=== PATIENT | female | born 1980 | race Caucasian/White ===

== ENCOUNTER 2017-11-25 12:05 | Emergency (ER) | payer OTHER, MEDICAID, SELFPAY ==
[2017-11-25 12:30] VITALS: PULSE 105; RESP 24; TEMP 38.7; O2SAT 100
[2017-11-25] MEDS: EPINEPHrine 1 MG/ML AMPUL 0.3 MG IM (13:16)
[2017-11-25 13:17] VITALS: BP 98/69; PULSE 105; RESP 24; O2SAT 100
[2017-11-25] MEDS: DEXAMETHASONE 4 MG TABLET 12 MG PO (13:36)
[2017-11-25 15:23] VITALS: BP 110/75; PULSE 84; RESP 14; O2SAT 100
[2017-11-25 16:06] VITALS: BP 110/63; PULSE 70; RESP 13; TEMP 36.9; O2SAT 99
--- NOTE | 2017-11-25 18:51 | ED_ITS ---
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 No identifiable triggering event. No GI upset , no wheezing, no shortness of breath. No new medications, no KONG inhibitor's, no NSAIDs, no facial trauma. ROS with no recent constitutional symptoms. Exam Gen: Pleasant, non-toxic appearing, resting comfortably HEENT: NC, AT, PEERL, EOMI. Tongue with diffuse swelling, remainder of oropharynx visually normal Resp: Clear to auscultation bilaterally. Unlabored respirations with a normal work of breathing. Card: Regular rate and rhythm. Extremities warm and well perfused. GI: Non-distended. Nontender to palpation throughout. : Deferred MSK: No visible deformities, strength and tone without visually appreciable deficit. Neuro: AO x 3, no facial asymmetry, vision and hearing WNL. Heme/Lymph: Deferred Skin: diffuse hives. Psych: Mood and affect appropriate. MDM Previous chart, nursing note, and vitals reviewed. 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 DDx & Evaluation: exam history consistent with anaphylaxis, doubt angioedema given the cutaneous reactions, patient given epinephrine with resolution of tongue swelling and decreased and rash, steroids, ranitidine also given. Patient took diphenhydramine prior to arrival. Discharge with EpiPen prescription instructions to follow up with PCP. Impression: anaphylaxis (please reference below for remainder of encounter information) Related Data Home Medications Medication Instructions Recorded Confirmed acetaminophen [Tylenol Extra 1,000 mg PO Q6HP PRN #0 04/21/17 Strength] pramipexole [Mirapex] 0.25 mg PO HS #0 04/21/17 Previous Rx's Medication Instructions Recorded cyclobenzaprine 10 mg PO Q8HP PRN #20 tab 04/21/17 epinephrine [EpiPen 2-Pacheco] 0.3 mg IM Q10M PRN #2 each 11/25/17 Allergies Allergy/AdvReac Type Severity Reaction Status Date / Time shellfish derived Allergy Severe Anaphylaxis Verified 11/25/17 13:47 Sulfa (Sulfonamide Allergy Mild HIVES Verified 11/25/17 13:47 Antibiotics) latex [LATEX] Allergy Unknown Verified 11/25/17 13:47 Discharge Plan Departure Patient Disposition: Home, Self-Care Clinical Impression: Anaphylaxis Discharge Date/Time: 11/25/17 16:18 Interventions: ED Discharge Assessment Last Done: 11/25/17 16:06 Activity Restrictions/Additional Instructions: You were in seen in the [facility] Emergency Department for evaluation of an allergic reaction. Please read and follow all of the instructions below. Please follow up with your primary care physician within 1-2 days. If you have any new symptoms or if you are at all concerned about your health please return immediately to the emergency department. If you do not have a primary care physician, If your child does not have a primary care physician, please contact [facility], [place], [facility] at [phone], [facility] at [phone], or [facility] at [phone] to arrange follow up care. If you have health insurance, please also contact your insurer for a list of accepting providers under your policy, you may contact these providers for further health care. Your care today was limited to identifying and treating emergent medical problems only. Many people have subtle differences in their test results that require follow up with their outpatient physician(s) to correctly determine if this represents a normal variation or concerning abnormality with respect to your specific health. The care given to you today was limited to identifying and treating emergent medical problems - you need to request a copy of all of your medical records from today's visit and follow up with your outpatient physician(s) to review both today's visit and your overall health. Allergic Reaction Home Instructions: Anaphylaxis is a severe allergic reaction that can be life threatening. Anaphylaxis happens when one has a severe reaction to something that they are allergic to. You can also have anaphylaxis even if you do not know you have an allergy. You were treated for a reaction that was concerning for anaphylaxis. You were given medications to reverse the initial effects of the allergic reaction, however these effects may last for hours to possibly several days. Rarely people can have a recurrence of symptoms after discharge. If you begin to have a worsening of your symptoms (usually hives, itching, swelling, wheezing, nausea or abdominal pain) please return to the emergency department immediately. If you ever have the following symptoms, please self-administer your epinephrine auto injector (brand names: EpiPen or Adrenaclick): * Hives * Facial swelling (mouth, throat, eyes, or tongue) * Shortness of breath, wheezing, or difficulty breathing * Feeling light headed, dizzy, or passing out * Nausea, vomiting, or abdominal cramping * After discharge please do the following: * Carry your epinephrine autoinjector with you. * Take the prescribed prednisone daily for the next 2 days. * Take prescribed diphenhydramine (adults - 25 mg, children < 12 years old - 1 mg/kg up to 25 mg total) every 6 hours for the next two days. * We recommend following up with your primary care doctor. If the cause of your symptoms is not clear, you may need further allergy testing. * Please avoid any medications, insects, foods, detergents, soaps, lotions or other possible substances that you think may be causing symptoms. * Please read the medication instructions and warnings. Epinephrine Auto-Injector (Brand Name: EpiPen or Adrenaclick) This medication is used in emergencies to treat very serious allergic reactions to insect stings/bites, foods, drugs, or other substances. Epinephrine acts quickly to improve breathing, stimulate the heart, raise a dropping blood pressure, reverse hives, and reduce swelling of the face, lips, and throat. Please keep this medication near you all times. Different brands of this medication have different directions for preparing and using the injector. Learn how to properly inject this medication in advance so you will be prepared when you actually need to use it. Also teach a family member or caregiver what to do if you cannot inject the medication yourself. Read the Patient Information Leaflet provided by your pharmacist before you have to use epinephrine and each time you get a refill. If you have any questions, consult your doctor or pharmacist. The effects of this medication are rapid but not long-lasting. After injecting epinephrine, seek immediate medical attention. Tell the healthcare professional that you have given yourself an injection of epinephrine. Avoid accidentally injecting this medication into your hands or areas of your body other than the thigh. If this occurs, tell the healthcare professional right away. Discard the injector properly. The solution in this product should be clear. Check this product visually for particles or discoloration from time to time. If it has turned cloudy or pink/ brown in color, do not use the product. Obtain a new supply. Epinephrine Side Effects: * A fast/pounding heartbeat, nervousness, sweating, nausea, vomiting, trouble breathing, headache, dizziness, anxiety, shakiness, or pale skin may occur. If any of these effects persist or worsen, notify your doctor or pharmacist promptly. * Remember that your doctor has prescribed this medication because he or she has judged that the benefit to you is greater than the risk of side effects. Many people using this medication do not have serious side effects. * Tell your doctor right away if any of these unlikely but serious side effects occur: irregular heartbeat. * Seek immediate medical attention if any of these rare but very serious side effects occur: chest pain, fainting, vision changes, seizures, confusion. * This is not a complete list of possible side effects. If you notice other effects not listed above, contact your doctor or pharmacist. Epinephrine Precautions: * Before using this medication, tell your doctor or pharmacist if you are allergic to it; or if you have any other allergies. This product may contain inactive ingredients, which can cause allergic reactions or other problems. Talk to your pharmacist for more details. * This product may contain sulfites. However, if you have a sulfite allergy, this should not be a reason for avoiding use of this medication during an emergency. Since epinephrine can be life-saving, using it is more important than avoiding any sulfite-related problems you may experience. * Before using this medication, tell your doctor or pharmacist your medical history, especially of: heart conditions (e.g., coronary artery disease, arrhythmias), high blood pressure, thyroid disease, diabetes. * This drug may make you dizzy. Do not drive, use machinery, or do any activity that requires alertness until you are sure you can perform such activities safely. * The elderly may be more sensitive to the effects of this drug, especially a rapid rise in blood pressure, with increased risk if they also have heart disease. Diphenhydramine (Brand Name: Benadryl) * Please take this medication as prescribed. * Please take the medication for the full duration of the precription. * If you feel you are experiencing a side effect, please call your physician or the emergency department. * This medication is used to treat allergic reactions, itching, and sleep problems. Diphenhydramine Side Effects: * This medication most commonly causes fatigue. It may also cause dizziness, thickening of mucus in the nose or throat, nausea, vomiting, and rarely feeling nervous or exictable. * Do not take more than prescribed, overdoses of this medication can be very dangerous. Diphenhydramine Precautions: * Before taking this product, tell your doctor or pharmacist if you are allergic to diphenhydramine. This product may contain inactive ingredients, which can cause allergic reactions or other problems. Talk to your pharmacist for more details. * Tell all of your health care providers that you take this drug. This includes your doctors, nurses, pharmacists, and dentists. * Do not take more than what your doctor told you to take. Taking more than you are told may raise your chance of very bad side effects. * Do not take this drug for longer than you were told by your doctor. * Avoid driving and doing other tasks or actions that call for you to be alert until you see how this drug affects you. * Do not use with other products that have diphenhydramine. * Avoid drinking alcohol while taking this drug. * Talk with your doctor before you use other drugs and natural products that slow your actions. * Tell your doctor if you are or plan on getting . You will need to talk about the benefits and risks of using this drug while you are . * Tell your doctor if you are breast-feeding. You will need to talk about any risks to your baby. * If you are taking a liquid formulation, please be aware that some of these contain phenylalanine, please let both your doctor and pharmacist know if you have phenylketonuria (PKU). Prescriptions: New epinephrine [EpiPen 2-Pacheco] 0.3 mg/0.3 mL auto-injector 0.3 mg IM Q10M PRN (Reason: anaphylaxis) Qty: 2 RF: 0 No Action acetaminophen [Tylenol Extra Strength] 500 MG tablet 1,000 mg PO Q6HP PRNQty: 0 RF: 0 pramipexole [Mirapex] 0.25 MG tablet 0.25 mg PO HS Qty: 0 RF: 0 cyclobenzaprine 10 MG tablet 10 mg PO Q8HP PRNQty: 20 RF: 0
== END 2017-11-25 16:18 | disposition home or self-care (01) ==
PROVIDERS: Emergency Provider Emergency Medicine
DX: T78.2XXA Anaphylactic shock, unspecified, initial encounter (principal)
CPT/HCPCS: 96372; 99282; 99283; 99291; 99292; J0171

== ENCOUNTER 2018-01-28 16:39 | Emergency (ER) | payer OTHER, MEDICAID, SELFPAY ==
[2018-01-28 16:58] VITALS: BP 119/83; PULSE 125; RESP 20; TEMP 36.9; O2SAT 97; BMI 28.5
--- NOTE | 2018-01-28 17:49 | PC.NURSE ---
[facility] contacted for IV placement. provider aware and no new orders at this time.
--- NOTE | 2018-01-28 17:50 | ED_ITS ---
HPI - Abdominal Pain <JENNIE Jamison - Last Filed: 01/28/18 22:38> General Chief Complaint: Abdominal Pain Stated Complaint: RT SIDE ABD PAIN,THROWING UP Time Seen by Provider: 01/28/18 17:39 History of Present Illness HPI narrative: 29-year-old female with history of having a endometriosis mass to her right ovary over the last couple of years here for complaint of right lower quadrant pain over the past few days. She states that pain is worse than normal for her. She currently has surgery scheduled in the next 2 weeks to remove the mass from her right ovary by OBGYN at [facility]. She has a history of hysterectomy. She denies any urinary symptoms. Positive nausea no fevers or chills. No flank pain. MD complaint: abdominal pain Related Data Home Medications Medication Instructions Recorded Confirmed acetaminophen [Tylenol Extra 1,000 mg PO Q6HP PRN #0 04/21/17 Strength] pramipexole [Mirapex] 0.25 mg PO HS #0 04/21/17 Previous Rx's Medication Instructions Recorded cyclobenzaprine 10 mg PO Q8HP PRN #20 tab 04/21/17 epinephrine [EpiPen 2-Pacheco] 0.3 mg IM Q10M PRN #2 each 11/25/17 hydrocodone-acetaminophen 1 tab PO Q4-6H PRN #10 tab 01/28/18 Allergies Allergy/AdvReac Type Severity Reaction Status Date / Time Sulfa (Sulfonamide Allergy Mild HIVES Verified 11/25/17 13:47 Antibiotics) latex [LATEX] Allergy Unknown Verified 11/25/17 13:47 Review of Systems <JENNIE Jamison - Last Filed: 01/28/18 22:38> Constitutional Denies chills, Denies fever(s), Denies lethargy and Denies weakness Eyes Denies change in vision, Denies eye discharge, Denies irritation and Denies loss of vision Cardiovascular Denies chest pain, Denies irregular heart rhythm, Denies lightheadedness, Denies palpitations, Denies dyspnea, Denies dyspnea on exertion and Denies orthopnea Respiratory Denies cough, Denies dyspnea, Denies dyspnea on exertion and Denies wheezing Gastrointestinal Comments: Right lower quadrant/pelvic pain Musculoskeletal Denies back pain, Denies muscle weakness, Denies numbness and Denies tingling Integumentary/Breasts Denies pruritus, Denies erythema, Denies rash and Denies wounds Neurologic Denies confusion, Denies loss of vision, Denies numbness, Denies tingling and Denies weakness Psychiatric Denies anxiety, Denies confusion, Denies depression, Denies homicidal ideation and Denies suicidal ideation Endocrine Denies palpitations Hematologic/Lymphatic Denies easy bruising Allergic/Immunologic Denies wheezing Exam <JENNIE Jamison - Last Filed: 01/28/18 22:38> Initial Vital Signs Initial Vital Signs: Vital Signs Temperature 98.4 F 01/28/18 16:58 Pulse Rate 125 H 01/28/18 16:58 Respiratory Rate 20 01/28/18 16:58 Blood Pressure 119/83 H 01/28/18 16:58 Pulse Oximetry 97 01/28/18 16:58 Const General: cooperative and well developed Nutritional Appearance: well nourished Orientation: alert, awake, oriented x3 and not confused HENMT Mouth: oral mucosae normal and moist mucous membranes Resp Effort & Inspection: normal respiratory effort, able to speak in complete sentences, no respiratory distress and no use of accessory muscles Auscultation: clear to auscultation bilaterally, no rales, no rhonchi and no wheezes Cardio Rate: regular rate Rhythm: regular rhythm Heart Sounds: no click, no gallops, no murmurs and no rubs GI Inspection: non-distended Palpation: soft, no hepatosplenomegaly, No guarding, No pulsatile mass and tender (Tenderness to right lower quadrant/pelvic area on palpation) Auscultation: normal bowel sounds Skin General: no rashes or lesions noted, No jaundice and No petechiae Neuro General: alert, oriented x3, gait normal and no focal motor deficits Speech: speech normal <Alfredo Menjivar DO - Last Filed: 01/29/18 01:51> Initial Vital Signs Initial Vital Signs: Vital Signs Temperature 98.4 F 01/28/18 16:58 Pulse Rate 125 H 01/28/18 16:58 Respiratory Rate 20 01/28/18 16:58 Blood Pressure 119/83 H 01/28/18 16:58 Pulse Oximetry 97 01/28/18 16:58 Course <JENNIE Jamison - Last Filed: 01/28/18 22:38> Orders Ordered: ED Orders 07/11/18 18:05 Complete Blood Count AUTO DIFF Stat Comprehensive Metabolic Panel Stat Lipase Stat 01/28/18 18:12 CT abdomen pelvis w con Stat Discontinued Medications Hydromorphone HCl (Dilaudid) 1 mg IV NOW ONE Stop: 01/28/18 18:13 Last Admin: 01/28/18 18:38 Dose: 1 mg Hydromorphone HCl (Dilaudid) 1 mg IV NOW ONE Stop: 01/28/18 20:03 Last Admin: 01/28/18 20:10 Dose: 1 mg Sodium Chloride (Normal Saline 0.9%) 1,000 mls @ 150 mls/hr IV CONT CRISTINA Last Infusion: 01/28/18 20:10 Dose: 150 mls/hr Admin: 01/28/18 18:06 Dose: 150 mls/hr Ondansetron HCl (Zofran) 4 mg IV NOW ONE Stop: 01/28/18 18:13 Last Admin: 01/28/18 18:38 Dose: 4 mg Vital Signs - 8 hr 01/28/18 20:10 Pulse Rate 82 Respiratory Rate 14 Blood Pressure [Left Arm] 150/83 H Pulse Oximetry 100 <Alfredo Menjivar, - Last Filed: 01/29/18 01:51> Orders Ordered: ED Orders 01/28/18 18:05 Complete Blood Count AUTO DIFF Stat Comprehensive Metabolic Panel Stat Lipase Stat 01/28/18 18:12 CT abdomen pelvis w con Stat Discontinued Medications Hydromorphone HCl (Dilaudid) 1 mg IV NOW ONE Stop: 01/28/18 18:13 Last Admin: 01/28/18 18:38 Dose: 1 mg Hydromorphone HCl (Dilaudid) 1 mg IV NOW ONE Stop: 01/28/18 20:03 Last Admin: 01/28/18 20:10 Dose: 1 mg Sodium Chloride (Normal Saline 0.9%) 1,000 mls @ 150 mls/hr IV CONT CRISTINA Last Infusion: 01/28/18 20:10 Dose: 150 mls/hr Admin: 01/28/18 18:06 Dose: 150 mls/hr Ondansetron HCl (Zofran) 4 mg IV NOW ONE Stop: 01/28/18 18:13 Last Admin: 01/28/18 18:38 Dose: 4 mg Vital Signs - 8 hr 01/28/18 20:10 Pulse Rate 82 Respiratory Rate 14 Blood Pressure [Left Arm] 150/83 H Pulse Oximetry 100 MDM - Abdominal Pain <JENNIE Jamison - Last Filed: 01/28/18 22:38> Lab Data Result diagrams: 01/28/18 18:05 01/28/18 18:05 Lab Results 01/28/18 01/28/18 Range/Units 18:05 18:05 WBC 9.1 (4.5-11.0) X10^3/uL RBC 3.93 L (4.0-5.2) X10^6/uL Hgb 13.1 (12.0-16.0) g/dL Hct 38.9 (36-46) % MCV 98.9 (80-100) fL MCH 33.3 (26-34) PG MCHC 33.7 (30-36) % RDW 11.9 (11.6-14.8) % Plt Count 260 (150-400) X10^3/uL Neut % (Auto) 64.2 (50-75) % Lymph % (Auto) 26.7 (25-40) % Swift % (Auto) 6.8 (3-14) % Eos % (Auto) 1.3 L (2-4) % Baso % (Auto) 1.0 (0-2) % Neut # (Auto) 5800 (1466-0058) /uL Sodium 141 (137-145) mmol/L Potassium 4.7 (3.4-5.1) mmol/L Chloride 110 H (98-107) mmol/L Carbon Dioxide 22 (22-32) mmol/L BUN 10 (7-17) mg/dL Creatinine 0.80 (0.52-1.04) mg/dL Estimated GFR > 60.0 (>60) mL/min BUN/Creatinine Ratio 12.5 (6-22) Glucose 85 (70-100) mg/dL Calcium 9.5 (8.4-10.2) mg/dL Total Bilirubin 0.5 (0.2-1.3) mg/dL AST 16 (14-36) IU/L ALT 21 (9-52) IU/L Alkaline Phosphatase 46 (38-126) U/L Total Protein 7.2 (6.3-8.2) g/dL Albumin 4.2 (3.5-5.0) g/dL Globulin 3.0 (1.7-4.1) g/dL Albumin/Globulin Ratio 1.4 (1.0-2.8) Lipase 54 (23-300) U/L Point of care testing: Urine Dip Bedside Urine Glucose Negative Bedside Urine Bilirubin - Negative Bedside Urine Ketone - Negative Urine Specific [place] 1.015 Bedside Urine Occult Blood - Negative Bedside Urine pH 6.0 Bedside Urine Protein - Negative Bedside Urine Urobilinogen +/- 1mg Bedside Urine Nitrite - Negative Bedside Urine Leukocytes - Negative Esterase MDM Narrative Medical decision making narrative: CBC and Chem panel lipase were obtained were unremarkable. CT of the abdomen was also obtained and was negative for any acute findings. Urinalysis was negative for urinary tract infection. No mass was seen into the pelvic region on CT. She is referred to OBGYN in which she is scheduled to see them for pre-surgery 2 days from now. Small amount of [place] is prescribed for breakthrough pain not covered by ibuprofen. Follow up with primary care provider. Return emergency room for any worsening symptoms. <Alfredo Menjivar, DO - Last Filed: 01/29/18 01:51> Lab Data Lab Results 01/28/18 01/28/18 Range/Units 18:05 18:05 WBC 9.1 (4.5-11.0) X10^3/uL RBC 3.93 L (4.0-5.2) X10^6/uL Hgb 13.1 (12.0-16.0) g/dL Hct 38.9 (36-46) % MCV 98.9 (80-100) fL MCH 33.3 (26-34) PG MCHC 33.7 (30-36) % RDW 11.9 (11.6-14.8) % Plt Count 260 (150-400) X10^3/uL Neut % (Auto) 64.2 (50-75) % Lymph % (Auto) 26.7 (25-40) % Swift % (Auto) 6.8 (3-14) % Eos % (Auto) 1.3 L (2-4) % Baso % (Auto) 1.0 (0-2) % Neut # (Auto) 5800 (2233-4044) /uL Sodium 141 (137-145) mmol/L Potassium 4.7 (3.4-5.1) mmol/L Chloride 110 H (98-107) mmol/L Carbon Dioxide 22 (22-32) mmol/L BUN 10 (7-17) mg/dL Creatinine 0.80 (0.52-1.04) mg/dL Estimated GFR > 60.0 (>60) mL/min BUN/Creatinine Ratio 12.5 (6-22) Glucose 85 (70-100) mg/dL Calcium 9.5 (8.4-10.2) mg/dL Total Bilirubin 0.5 (0.2-1.3) mg/dL AST 16 (14-36) IU/L ALT 21 (9-52) IU/L Alkaline Phosphatase 46 (38-126) U/L Total Protein 7.2 (6.3-8.2) g/dL Albumin 4.2 (3.5-5.0) g/dL Globulin 3.0 (1.7-4.1) g/dL Albumin/Globulin Ratio 1.4 (1.0-2.8) Lipase 54 (23-300) U/L Point of care testing: Urine Dip Bedside Urine Glucose Negative Bedside Urine Bilirubin - Negative Bedside Urine Ketone - Negative Urine Specific [place] 1.015 Bedside Urine Occult Blood - Negative Bedside Urine pH 6.0 Bedside Urine Protein - Negative Bedside Urine Urobilinogen +/- 1mg Bedside Urine Nitrite - Negative Bedside Urine Leukocytes - Negative Esterase Discharge Plan Departure Patient Disposition: Home, Self-Care Clinical Impression: Abdominal pain Discharge Date/Time: 01/28/18 20:25 Interventions: ED Discharge Assessment Last Done: 01/28/18 20:18 Instructions: DI for Abdominal Pain-Adult Activity Restrictions/Additional Instructions: Laboratory results today were unremarkable. CT of the abdomen was obtained was negative for any acute findings. Recommend following up with tin stacker as scheduled in the next couple days for re-evaluation and discussion of pain control until surgery can be completed. Small amount of [place] is prescribed for breakthrough pain and that covered by ibuprofen use as directed. For any worsening symptoms return to the emergency room. Follow up with primary care provider. Prescriptions: New hydrocodone-acetaminophen 5-325 mg tablet 1 tab PO Q4-6H PRN (Reason: pain) Qty: 10 RF: 0 No Action acetaminophen [Tylenol Extra Strength] 500 MG tablet 1,000 mg PO Q6HP PRNQty: 0 RF: 0 pramipexole [Mirapex] 0.25 MG tablet 0.25 mg PO HS Qty: 0 RF: 0 cyclobenzaprine 10 MG tablet 10 mg PO Q8HP PRNQty: 20 RF: 0 epinephrine [EpiPen 2-Pacheco] 0.3 mg/0.3 mL auto-injector 0.3 mg IM Q10M PRN (Reason: anaphylaxis) Qty: 2 RF: 0 Referrals: Cate Hensley [Primary Care Provider] - <Alfredo Menjivar DO - Last Filed: 01/29/18 01:51> [facility] Attending [place] Attestation: I was immediately available in the department for consultation. Documentation has been reviewed. I agree with assessment and plan.
[2018-01-28] MEDS: SODIUM CHLORIDE 0.9% 1,000 ML 150 ML IV (18:06)
--- NOTE | 2018-01-28 18:12 | DI.CT.S_ITS ---
PROCEDURE: CT ABDOMEN PELVIS W CON INDICATIONS: Right lower quadrant pain TECHNIQUE: After the administration of intravenous contrast, 5 mm thick sections acquired from the diaphragm to the symphysis. 5 mm coronal and sagittal reformats were acquired. For radiation dose reduction, the following was used: automated exposure control, adjustment of mA and/or kV according to patient size. COMPARISON: [facility], CT, CT KUB, 11/10/2016, 21:24. FINDINGS: Image quality: Excellent. ABDOMEN: Lung bases: Lung bases are clear. Heart size is normal. Solid organs: Liver is normal in size and enhancement. Gallbladder appears normal. Biliary system is non dilated. Pancreas enhances normally. Spleen is normal in size and enhancement. No adrenal nodules. Kidneys demonstrate normal size and enhancement, without hydronephrosis. Peritoneum and bowel: Bowel loops demonstrate normal wall thickness and caliber. No free fluid or air. Nodes and vessels: No retroperitoneal or mesenteric adenopathy by size criteria. Aorta and inferior vena cava are normal in size. Miscellaneous: No ventral hernias. PELVIS: Genitourinary: Bladder wall thickness is normal. Miscellaneous: No inguinal hernias or adenopathy. A normal or abnormal appendix is not seen at the right lower quadrant. Bones: No suspicious bony lesions. No vertebral body compression fractures. IMPRESSION: A normal or abnormal appendix is not seen at the right lower quadrant. Source of current right lower quadrant pain is not seen. No secondary CT evidence of acute cholecystitis is found. At the adnexal regions of each hemipelvis a discrete cystic or solid mass is not identified. Dictated by: Randell Sosa M.D. on 01/28/2018 at 19:42 Approved by: Randell Sosa M.D. on 01/28/2018 at 19:44
[2018-01-28 18:19] LABS: Add Manual Diff / Slide Review NO; Eosinophils Percent Auto 1.3 % (2-4); Hematocrit 38.9 % (36-46); Hemoglobin 13.1 g/dL (12.0-16.0); Lymphocytes Percent Auto 26.7 % (25-40); Mean Corpuscular HGB Conc 33.7 % (30-36); Mean Corpuscular Hemoglobin 33.3 PG (26-34); Mean Corpuscular Volume 98.9 fL (80-100); Monocytes Percent Auto 6.8 % (3-14); Neutrophils Absolute Auto 5800 /uL (3000-5900); Neutrophils Percent Auto 64.2 % (50-75); Platelet Count 260 X10^3/uL (150-400); Red Blood Cell Count 3.93 X10^6/uL (4.0-5.2); Red Cell Distribution Width 11.9 % (11.6-14.8); White Blood Cell Count 9.1 X10^3/uL (4.5-11.0)
--- NOTE | 2018-01-28 18:26 | PC.NURSE ---
Patient refused refused POC states she does not have a uterus. provider aware. no new orders at this time.
[2018-01-28] MEDS: HYDROMORPHONE 1 MG INJ IV ×2 (18:38→20:10)
[2018-01-28] MEDS: ONDANSETRON 4 MG/2 ML INJ IV (18:38)
[2018-01-28 18:40] LABS: Alanine Aminotransferase 21 IU/L (9-52); Albumin 4.2 g/dL (3.5-5.0); Albumin Globulin Ratio 1.4 (1.0-2.8); Alkaline Phosphatase 46 U/L (38-126); Aspartate Aminotransferase 16 IU/L (14-36); BUN Creatinine Ratio 12.5 (6-22); Bilirubin Total 0.5 mg/dL (0.2-1.3); Blood Urea Nitrogen 10 mg/dL (7-17); Calcium 9.5 mg/dL (8.4-10.2); Carbon Dioxide 22 mmol/L (22-32); Chloride 110 mmol/L (98-107); Estimated Glomerular Filt Rate > 60.0 mL/min (>60); Glucose 85 mg/dL (70-100); HEMOLYSIS < 15 (0-50); Lipase 54 U/L (23-300); Potassium 4.7 mmol/L (3.4-5.1); Sodium 141 mmol/L (137-145); Total Protein 7.2 g/dL (6.3-8.2)
[2018-01-28 20:10] VITALS: BP 150/83; PULSE 82; RESP 14; O2SAT 100
== END 2018-01-28 20:25 | disposition home or self-care (01) ==
PROVIDERS: Emergency Medicine; Emergency Provider Nurse Practitioner Family; PCP Physician Assistant
DX: R10.9 Unspecified abdominal pain (principal)
CPT/HCPCS: 36591; 74177; 80053; 81003; 83690; 85025; 96361; 96374; 96375; 96376; 99283; 99284; J1170; J2405; Q9967

== ENCOUNTER 2019-03-08 21:27 | Emergency (ER) | payer SELFPAY ==
[2019-03-08 21:36] VITALS: BP 141/81; PULSE 94; RESP 18; TEMP 36.7; O2SAT 98; BMI 25.3
--- NOTE | 2019-03-08 21:40 | ED.HEATRA ---
HPI - Head Injury General Chief complaint: Headache Stated complaint: Headache Time Seen by Provider: 03/08/19 21:29 Source: patient and family Mode of arrival: ambulatory Limitations: no limitations History of Present Illness HPI Narrative: 38-year-old female former smoker with history of migraines presents with severe frontal headache which is similar in location to prior headaches, but quicker in onset and more severe. She denies any injury nor neck pain or fever. She states bright lights, loud noise and exertion makes her pain worse. She denies any neurologic symptoms such as numbness, weakness or tingling. She does state that her vision is a bit blurred when her pain is at its most intense. Complaint: head pain Onset (ago): hour(s) Severity: severe Quality: crushing and aching Radiation: none Related Data Home Medications Medication Instructions Recorded Confirmed acetaminophen [Tylenol Extra 1,000 mg PO Q6HP PRN #0 04/21/17 Strength] pramipexole [Mirapex] 0.25 mg PO HS #0 04/21/17 Previous Rx's Medication Instructions Recorded cyclobenzaprine 10 mg PO Q8HP PRN #20 tab 04/21/17 epinephrine [EpiPen 2-Pacheco] 0.3 mg IM Q10M PRN #2 each 11/25/17 hydrocodone-acetaminophen 1 tab PO Q4-6H PRN #10 tab 01/28/18 Allergies Allergy/AdvReac Type Severity Reaction Status Date / Time Sulfa (Sulfonamide Allergy Mild HIVES Verified 03/08/19 21:38 Antibiotics) latex [LATEX] Allergy Unknown Verified 03/08/19 21:38 Review of Systems Constitutional Denies chills, Denies fever(s), Reports headache(s), Denies lethargy and Denies weakness Eyes Denies change in vision, Denies eye discharge, Denies irritation and Denies loss of vision ENT Ears, Nose, Mouth, and Throat: Denies change in voice, Reports headache(s), Denies neck pain and Denies sore throat Cardiovascular Denies chest pain, Denies irregular heart rhythm, Denies lightheadedness, Denies palpitations, Denies dyspnea, Denies dyspnea on exertion and Denies orthopnea Respiratory Denies cough, Denies dyspnea, Denies dyspnea on exertion and Denies wheezing Gastrointestinal Gastrointestinal: Denies abdominal pain, Denies change in bowel habits, Denies diarrhea, Denies nausea and Denies vomiting Genitourinary Denies hematuria, Denies flank pain, Denies urinary incontinence and Denies urinary urgency Musculoskeletal Denies neck pain Integumentary/Breasts Denies pruritus, Denies erythema, Denies rash and Denies wounds Neurologic Denies confusion, Reports headache(s), Denies loss of vision and Denies weakness Psychiatric Denies anxiety, Denies confusion, Denies depression, Denies homicidal ideation and Denies suicidal ideation Endocrine Denies palpitations Hematologic/Lymphatic Denies easy bruising Allergic/Immunologic Denies wheezing PFSH Social History Smoking Status: Current every day smoker Social History Smoking Status: Current every day smoker Exam Narrative Exam Narrative: GENERAL: [38] year old patient appears stated age. Well-nourished, well-developed patient, in significant distress, clutching her head HEAD: Atraumatic. Normocephalic. EYES: Pupils equal round and reactive. Extraocular motions intact. No scleral icterus. No injection or drainage. ENT: Nose without bleeding, purulent drainage. Throat without erythema, tonsillar hypertrophy or exudate. Airway patent. NECK: Trachea midline. Non tender CARDIOVASCULAR: Regular rate and rhythm without murmurs, gallops, or rubs. RESPIRATORY: Clear to auscultation. Breath sounds equal bilaterally. No wheezes, rales, or rhonchi. GASTROINTESTINAL: Abdomen soft, non-tender, nondistended. EXTREMITIES: No edema or joint tenderness. BACK: Nontender without deformity or crepitance. No flank tenderness. NEURO: AOx3. SKIN: No rash or erythema of visible areas Initial Vital Signs Initial Vital Signs: Vital Signs Temperature 98.0 F 03/08/19 21:36 Pulse Rate 94 H 03/08/19 21:36 Respiratory Rate 18 03/08/19 21:36 Blood Pressure 141/81 H 03/08/19 21:36 Pulse Oximetry 98 03/08/19 21:36 Course Course Narrative: Patient has tremendous improvement in symptoms after intranasal fentanyl Orders Ordered: ED Orders 03/08/19 21:57 CT head/brain wo con Stat 03/08/19 22:25 Basic Metabolic Panel Stat 03/08/19 23:35 Urine Microscopic Stat Discontinued Medications Fentanyl (Sublimaze) 50 mcg IV Q1H PRN PRN Reason: Pain, Severe (7-10) Last Admin: 03/08/19 21:44 Dose: 50 mcg Ketorolac Tromethamine (Toradol) 60 mg IM NOW ONE Stop: 03/08/19 23:08 Last Admin: 03/08/19 23:20 Dose: 60 mg Ondansetron HCl (Zofran) 4 mg IV Q4HR PRN PRN Reason: Nausea And Vomiting Last Admin: 03/08/19 21:44 Dose: 4 mg Ondansetron HCl (Zofran Odt) 4 mg SL NOW ONE Stop: 03/08/19 21:57 Last Admin: 03/08/19 22:03 Dose: 4 mg Ondansetron HCl (Zofran Odt Prepack) 1 bottle MISC SEEINSTR ONE Stop: 03/08/19 23:22 Last Admin: 03/08/19 23:47 Dose: 1 bottle Vital Signs - 8 hr 03/08/19 21:36 03/08/19 22:17 03/08/19 22:24 Temperature 98.0 F Pulse Rate 94 H 74 70 Respiratory Rate 18 19 16 Blood Pressure 141/81 H Blood Pressure [Right Arm] 115/73 115/73 Pulse Oximetry 98 97 97 03/08/19 22:56 03/08/19 23:00 03/08/19 23:38 Temperature Pulse Rate 83 65 64 Respiratory Rate 16 17 15 Blood Pressure Blood Pressure [Right Arm] 103/70 124/74 105/66 Pulse Oximetry 98 96 96 MDM - Head Injury Lab Data Result diagrams: 03/08/19 22:25 Lab Results 03/08/19 03/08/19 Range/Units 22:25 23:35 Sodium 140 (137-145) mmol/L Potassium 4.9 (3.4-5.1) mmol/L Chloride 111 H (98-107) mmol/L Carbon Dioxide 25 (22-32) mmol/L BUN 16 (7-17) mg/dL Creatinine 0.70 (0.52-1.04) mg/dL Estimated GFR > 60.0 (>60) mL/min BUN/Creatinine Ratio 22.9 H (6-22) Glucose 103 H (70-100) mg/dL Calcium 9.2 (8.4-10.2) mg/dL Urine RBC None seen (0-5/HPF) Urine WBC None seen (0-5/HPF) Amorphous Sediment 3+ Urine Bacteria None seen (None) Ur Culture Indicated? Cult not indicated Point of Care Testing Test Results Negative Urine Dip Bedside Urine Glucose Negative Bedside Urine Ketone +/- 5 Urine Specific [place] 1.015 Bedside Urine Occult Blood - Negative Bedside Urine pH 7.5 Bedside Urine Protein +/- 15 Bedside Urine Urobilinogen +/- 1mg Bedside Urine Nitrite - Negative Bedside Urine Leukocytes - Negative Esterase Imaging Data CT scan - head: Radiologist's impression: NAP MDM Narrative Medical decision making narrative: Patient presents with severe headache. Migraine considered given her history and response to medications. SAH considered, but thought less likely given negative head CT. Meningitis thought unlikely given no fever, rapid return to baseline, and lack of meningeal signs. Extensive return precautions given to the patient, questions answered to her apparent satisfaction Discharge Plan Departure Patient Disposition: Home Clinical Impression: Headache Qualifiers: Headache type: unspecified Headache chronicity pattern: unspecified pattern Intractability: not intractable Qualified Code(s): R51 - Headache Discharge Date/Time: 03/08/19 23:54 Interventions: ED Discharge Assessment Last Done: 03/08/19 23:52 Instructions: DI for Headache Activity Restrictions/Additional Instructions: *You have been diagnosed with [ atypical headache ] *What to do: *Take medications as directed *Follow up with your primary care provider in 2-3 days, call for an appointment. Let them know you were seen in the Emergency Department and that we ask that you be seen in follow up *Return to ER if you should have any new, worsening or concerning symptoms Prescriptions: No Action acetaminophen [Tylenol Extra Strength] 500 MG tablet 1,000 mg PO Q6HP PRNQty: 0 RF: 0 pramipexole [Mirapex] 0.25 MG tablet 0.25 mg PO HS Qty: 0 RF: 0 cyclobenzaprine 10 MG tablet 10 mg PO Q8HP PRNQty: 20 RF: 0 epinephrine [EpiPen 2-Pacheco] 0.3 mg/0.3 mL auto-injector 0.3 mg IM Q10M PRN (Reason: anaphylaxis) Qty: 2 RF: 0 hydrocodone-acetaminophen 5-325 mg tablet 1 tab PO Q4-6H PRN (Reason: pain) Qty: 10 RF: 0
[2019-03-08] MEDS: fentaNYL 100 MCG/2 ML INJ 50 MCG IV (21:44)
[2019-03-08] MEDS: ONDANSETRON 4 MG/2 ML INJ IV (21:44)
--- NOTE | 2019-03-08 21:51 | PC.NURSE ---
50mcg Fentanly given IN per verbal order from Dr Menjivar Left upper arm PIV infiltrated. Pt states she's a hard stick, always needs ultrasound, has had IV's in neck and feet in the past.
--- NOTE | 2019-03-08 21:57 | DI.CT.S_ITS ---
PROCEDURE: CT HEAD/BRAIN WO CON INDICATIONS: severe sudden VELEZ with vomiting TECHNIQUE: Noncontrast 4.5 mm thick angled axial sections acquired from the foramen magnum to the vertex, with coronal and sagittal reformats. For radiation dose reduction, the following was used: automated exposure control, adjustment of mA and/or kV according to patient size. COMPARISON: None. FINDINGS: Image quality: Excellent. CSF spaces: Basal cisterns are patent. No extra-axial fluid collections. Ventricles are normal in size and shape. Brain: No midline shift. No intracranial masses or hemorrhage. Calero-white matter interface is normal. Skull and face: Calvarium and visualized facial bones are intact, without suspicious lesions. Sinuses: Visualized sinuses and mastoids are clear. IMPRESSION: No acute intracranial disease process. Dictated by: Louise Rehman MD, PhD on 03/09/2019 at 7:12 Approved by: Louise Rehman MD, PhD on 03/09/2019 at 7:14
[2019-03-08] MEDS: ONDANSETRON 4 MG ODT SL (22:03)
--- NOTE | 2019-03-08 22:05 | PC.NURSE ---
Pt received writhing on bed, grabbing at her head, crying out. Vomiting and spitting into emesis bag. Mother and fiance at bedside. Pt states this is the worst VELEZ of her life. Skin pale and moist. Pt states that she is difficult IV start. 20g Started to the back of left arm that blew before I could medicate her. Care discussed with Dr Menjivar-- Fentanyl given IN and Zofran given ODT per verbal order with some relief-- pt now feels cold, warm blanket given. Able to lie still in bed. Pt now to CT head.
[2019-03-08 22:17] VITALS: BP 115/73; PULSE 74; RESP 19; O2SAT 97
--- NOTE | 2019-03-08 22:19 | PC.NURSE ---
Pt now lying still in bed, pt is calmer and coherent. Pt reports relief after meds, rates VELEZ pain now 01/27. CT head complete.
[2019-03-08 22:24] VITALS: BP 115/73; PULSE 70; RESP 16; O2SAT 97
[2019-03-08 22:47] LABS: HEMOLYSIS < 15 (0-50); Potassium 4.9 mmol/L (3.4-5.1)
[2019-03-08 22:50] LABS: BUN Creatinine Ratio 22.9 (6-22); Blood Urea Nitrogen 16 mg/dL (7-17); Calcium 9.2 mg/dL (8.4-10.2); Carbon Dioxide 25 mmol/L (22-32); Chloride 111 mmol/L (98-107); Estimated Glomerular Filt Rate > 60.0 mL/min (>60); Glucose 103 mg/dL (70-100); Sodium 140 mmol/L (137-145)
[2019-03-08 22:56] VITALS: BP 103/70; PULSE 83; RESP 16; O2SAT 98
--- NOTE | 2019-03-08 22:58 | PC.NURSE ---
Pt resting in bed with eyes closed. Rates pain 7/10 with movement, less when still. Reports photophobia. Dr amos now at bedside discussing plan of care.
[2019-03-08 23:00] VITALS: BP 124/74; PULSE 65; RESP 17; O2SAT 96
[2019-03-08] MEDS: KETOROLAC 60 MG/2 ML VIAL IM (23:20)
[2019-03-08 23:38] VITALS: BP 105/66; PULSE 64; RESP 15; O2SAT 96
[2019-03-08 23:41] LABS: Bacteria Urine None Seen; RBC Urine None Seen (0-5/HPF); WBC Urine None Seen (0-5/HPF)
[2019-03-08] MEDS: ONDANSETRON 4 MG ODT PREPACK 1 BOTTLE MISC (23:47)
[2019-03-08 23:49] LABS: Amorphous Sediment Urine 3+; Culture Indicated Urine Cult Not Indicated
--- NOTE | 2019-03-09 02:31 | ED_ITS ---
HPI - Head Injury General Chief complaint: Headache Stated complaint: Headache Time Seen by Provider: 03/08/19 21:29 Source: patient and family Mode of arrival: ambulatory Limitations: no limitations History of Present Illness HPI Narrative: 38-year-old female former smoker with history of migraines presents with severe frontal headache which is similar in location to prior headaches, but quicker in onset and more severe. She denies any injury nor neck pain or fever. She states bright lights, loud noise and exertion makes her pain worse. She denies any neurologic symptoms such as numbness, weakness or tingli ng. She does state that her vision is a bit blurred when her pain is at its most intense. MD Complaint: head pain Onset (ago): hour(s) Severity: severe Quality: crushing and aching Radiation: none Related Data Home Medications Medication Instructions Recorded Confirmed acetaminophen [Tylenol Extra 1,000 mg PO Q6HP PRN #0 04/21/17 Strength] pramipexole [Mirapex] 0.25 mg PO HS #0 04/21/17 Previous Rx's Medication Instructions Recorded cyclobenzaprine 10 mg PO Q8HP PRN #20 tab 04/21/17 epinephrine [EpiPen 2-Pacheco] 0.3 mg IM Q10M PRN #2 each 11/25/17 hydrocodone-acetaminophen 1 tab PO Q4-6H PRN #10 tab 01/28/18 Allergies Allergy/AdvReac Type Severity Reaction Status Date / Time Sulfa (Sulfonamide Allergy Mild HIVES Verified 03/08/19 21:38 Antibiotics) latex [LATEX] Allergy Unknown Verified 03/08/19 21:38 Review of Systems Constitutional Denies chills, Denies fever(s), Reports headache(s), Denies lethargy and Denies weakness Eyes Denies change in vision, Denies eye discharge, Denies irritation and Denies loss of vision ENT Ears, Nose, Mouth, and Throat: Denies change in voice, Reports headache(s), Triston es neck pain and Denies sore throat Cardiovascular Denies chest pain, Denies irregular heart rhythm, Denies lightheadedness, Denies palpitations, Denies dyspnea, Denies dyspnea on exertion and Denies orthopnea Respiratory Denies cough, Denies dyspnea, Denies dyspnea on exertion and Denies wheezing Gastrointestinal Gastrointestinal: Denies abdominal pain, Denies change in bowel habits, Denies diarrhea, Denies nausea and Denies vomiting Genitourinary Denies hematuria, Denies flank pain, Denies urinary incontinence and Denies urinary urgency Musculoskeletal Denies neck pain Integumentary/Breasts Denies pruritus, Denies erythema, Denies rash and Denies wounds Neurologic Denies confusion, Reports headache(s), Denies loss of vision and Denies weakness Psychiatric Denies anxiety, Denies confusion, Denies depression, Denies homicidal ideation a nd Denies suicidal ideation Endocrine Denies palpitations Hematologic/Lymphatic Denies easy bruising Allergic/Immunologic Denies wheezing PFSH Social History Smoking Status: Current every day smoker Social History Smoking Status: Current every day smoker Exam Narrative Exam Narrative: GENERAL: [38] year old patient appears stated age. Well- nourished, well-developed patient, in significant distress, clutching her head HEAD: Atraumatic. Normocephalic. EYES: Pupils equal round and reactive. Extraocular motions intact. No scleral icterus. No injection or drainage. ENT: Nose without bleeding, purulent drainage. Throat without erythema, tonsillar hypertrophy or exudate. Airway patent. NECK: Trachea midline. Non tender CARDIOVASCULAR: Regular rate and rhythm without murmurs, gallops, or rubs. RESPIRATORY: Clear to auscultation. Breath sounds equal bilaterally. No wheezes, rales, or rhonchi. GASTROINTESTINAL: Abdomen soft, non-tender, nondistended. EXTREMITIES: No edema or joint tenderness. BACK: Nontender without deformity or crepitance. No flank tenderness. NEURO: AOx3. SKIN: No rash or erythema of visible areas Initial Vital Signs Initial Vital Signs: Vital Signs Temperature 98.0 F 03/08/19 21:36 Pulse Rate 94 H 03/08/19 21:36 Respiratory Rate 18 03/08/19 21:36 Blood Pressure 141/81 H 03/08/19 21:36 Pulse Oximetry 98 03/08/19 21:36 Course Course Narrative: Patient has tremendous improvement in symptoms after intran miguelina fentanyl Orders Ordered: ED Orders 03/08/19 21:57 CT head/brain wo con Stat 03/08/19 22:25 Basic Metabolic Panel Stat 03/08/19 23:35 Urine Microscopic Stat Discontinued Medications Fentanyl (Sublimaze) 50 mcg IV Q1H PRN PRN Reason: Pain, Severe (7-10) Last Admin: 03/08/19 21:44 Dose: 50 mcg Ketorolac Tromethamine (Toradol) 60 mg IM NOW ONE Stop: 03/08/19 23:08 Last Admin: 03/08/19 23:20 Dose: 60 mg Ondansetron HCl (Zofran) 4 mg IV Q4HR PRN PRN Reason: Nausea And Vomiting Last Admin: 03/08/19 21:44 Dose: 4 mg Ondansetron HCl (Zofran Odt) 4 mg SL NOW ONE Stop: 03/08/19 21:57 Last Admin: 03/08/19 22:03 Dose: 4 mg Ondansetron HCl (Zofran Odt Prepack) 1 bottle MISC SEEINSTR ONE Stop: 03/08/19 23:22 Last Admin: 03/08/19 23:47 Dose: 1 bottle Vital Signs - 8 hr 03/08/19 21:36 03/08/19 22:17 03/08/19 22:24 Temperature 98.0 F Pulse Rate 94 H 74 70 Respiratory Rate 18 19 16 Blood Pressure 141/81 H Blood Pressure [Right Arm] 115/73 115/73 Pulse Oximetry 98 97 97 03/08/19 22:56 03/08/19 23:00 03/08/19 23:38 Temperature Pulse Rate 83 65 64 Respiratory Rate 16 17 15 Blood Pressure Blood Pressure [Right Arm] 103/70 124/74 105/66 Pulse Oximetry 98 96 96 MDM - Head Injury Lab Data Result diagrams: 03/08/19 22:25 Lab Results 03/08/19 03/08/19 Range/Units 22:25 23:35 Sodium 140 (137-145) mmol/L Potassium 4.9 (3.4-5.1) mmol/L Chloride 111 H (98-107) mmol/L Carbon Dioxide 25 (22-32) mmol/L BUN 16 (7-17) mg/dL Creatinine 0.70 (0.52-1.04) mg/dL Estimated GFR > 60.0 (>60) mL/min BUN/Creatinine Ratio 22.9 H (6-22) Glucose 103 H (70-100) mg/dL Calcium 9.2 (8.4-10.2) mg/dL Urine RBC None seen (0-5/HPF) Urine WBC None seen (0-5/HPF) Amorphous Sediment 3+ Urine Bacteria None seen (None) Ur Culture Indicated? Cult not indicated Point of Care Testing Test Results Negative Urine Dip Bedside Urine Glucose Negative Bedside Urine Ketone +/- 5 Urine Specific [place] 1.015 Bedside Urine Occult Blood - Negative Bedside Urine pH 7.5 Bedside Urine Protein +/- 15 Bedside Urine Urobilinogen +/- 1mg Bedside Urine Nitrite - Negative Bedside Urine Leukocytes - Negative Esterase Imaging Data CT scan - head: Radiologist's impression: NAP MDM Narrative Medical decision making narrative: Patient presents with severe headache. Migraine considered given her history and response to medications. SAH considered, but thought less likely given negative head CT. Meningitis thought unlikely given no fever, rapid return to baseline, and lack of meningeal signs. Extensive return precautions given to the patient, questions answered to her apparent satisfaction Discharge Plan Departure Patient Disposition: Home Clinical Impression: Headache Qualifiers: Headache type: unspecified Headache chronicity pattern: unspecified pattern Intractability: not intractable Qualified Code(s): R51 - Headache Discharge Date/Time: 03/08/19 23:54 Interventions: ED Discharge Assessment Last Done: 03/08/19 23:52 Instructions: DI for Headache Activity Restrictions/Additional Instructions: *You have been diagnosed with [ atypical headache ] *What to do: *Take medications as directed *Follow up with your primary care provider in 2-3 days, call for an appointment. Let them know you were seen in the Emergency Department and that we ask that you be seen in follow up *Return to ER if you should have any new, worsening or concerning symptoms Prescriptions: No Action acetaminophen [Tylenol Extra Strength] 500 MG tablet 1,000 mg PO Q6HP PRNQty: 0 RF: 0 pramipexole [Mirapex] 0.25 MG tablet 0.25 mg PO HS Qty: 0 RF: 0 cyclobenzaprine 10 MG tablet 10 mg PO Q8HP PRNQty: 20 RF: 0 epinephrine [EpiPen 2-Pacheco] 0.3 mg/0.3 mL auto-injector 0.3 mg IM Q10M PRN (Reason: anaphylaxis) Qty: 2 RF: 0 hydrocodone-acetaminophen 5-325 mg tablet 1 tab PO Q4-6H PRN (Reason: pain) Qty: 10 RF: 0
== END 2019-03-08 23:54 | disposition home or self-care (01) ==
PROVIDERS: Emergency Provider Emergency Medicine
DX: R51 Headache (principal)
CPT/HCPCS: 36415; 70450; 80048; 81003; 81015; 81025; 96372; 96374; 96375; 99283; 99284; J1885; J2405; J3010

== ENCOUNTER → 2019-04-09 13:07 | Outpatient (ROUT) | payer SELFPAY ==
[2019-04-11 12:38] LABS: Mitogen-NIL > 10.00 IU/mL; NIL 0.02 IU/mL; QuantiFERON TB NEGATIVE (Negative); TB2-NIL 0.09 IU/mL
== END ==
PROVIDERS: Nurse Practitioner Family; Visit Provider Registered Nurse
DX: Z11.1 Encounter for screening for respiratory tuberculosis (principal)
CPT/HCPCS: 36415; 86480

== ENCOUNTER 2019-06-27 05:52 | Emergency (ER) | payer SELFPAY ==
[2019-06-27 06:02] VITALS: BP 131/53; PULSE 112; RESP 22; TEMP 36.8; O2SAT 96
--- NOTE | 2019-06-27 06:03 | DI.RAD.S_ITS ---
PROCEDURE: XR FOOT RT MIN 3V INDICATIONS: pain on top of foot, no injury, denies hx TECHNIQUE: 3 views of the foot were acquired. COMPARISON: [facility], , FOOT 2V LEFT, 08/14/2013, 15:04. FINDINGS: Bones: No fractures or dislocations. No suspicious bony lesions. Soft tissues: No tibiotalar joint effusion. Achilles tendon appears normal. IMPRESSION: 1. No fracture or dislocation. Dictated by: Kevan Vega M.D. on 06/27/2019 at 7:08 Approved by: Kevan Vega M.D. on 06/27/2019 at 7:09
--- NOTE | 2019-06-27 06:03 | DI.US.S_ITS ---
PROCEDURE: US PERIPH VENOUS LOW EXTREM RT INDICATIONS: PAIN, EDEMA, ERYTHEMA TECHNIQUE: Real-time imaging, as well as color and pulse Doppler interrogation, were performed of the lower extremity deep veins from the inguinal ligament to the popliteal fossa. COMPARISON: None. FINDINGS: The common femoral, femoral and popliteal veins are normally compressible, and free of intraluminal thrombus. Color and pulse Doppler demonstrate normal phasic intraluminal flow. There is normal augmentation response to distal compression maneuver. IMPRESSION: 1. No evidence of deep venous thrombosis in the right lower extremity. Dictated by: Kevan Vega M.D. on 06/27/2019 at 7:00 Approved by: Kevan Vega M.D. on 06/27/2019 at 7:01
--- NOTE | 2019-06-27 06:05 | ED.EXTPRO ---
HPI - Extremity Problem <Juanita Robles DO - Last Filed: 06/27/19 21:19> General Chief complaint: Extremity Problem,Nontraumatic Stated complaint: RT Foot Swollen, painful, hard to walk Time Seen by Provider: 06/27/19 05:58 Source: patient Mode of arrival: Ambulatory Limitations: no limitations History of Present Illness HPI Narrative: This is a 38-year-old female who comes emergency department complaint of pain in her. Patient states that it came on fairly suddenly, she states 3 painful and swollen and feels sort of numb and tingly on the top of her foot that is where her pain is located extending towards the toes. She states is hard to walk. She denies trauma or recent injury. she denies any other pain, neuropathy or issues in the. 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 Patient denies fevers. No chest pain or shortness breath. No nausea vomiting no other GI or urinary symptoms. She states she takes 4 times daily for fibromyalgia specifically. She takes hydrocodone twice daily. Patient states she is having appendectomy she uses tobacco, denies alcohol and denies any illicit recent or former. Related Data Home Medications Medication Instructions Recorded Confirmed acetaminophen [Tylenol Extra 1,000 mg PO Q6HP PRN #0 04/21/17 Strength] pramipexole [Mirapex] 0.25 mg PO HS #0 04/21/17 Previous Rx's Medication Instructions Recorded cyclobenzaprine 10 mg PO Q8HP PRN #20 tab 04/21/17 epinephrine [EpiPen 2-Pacheco] 0.3 mg IM Q10M PRN #2 each 11/25/17 hydrocodone-acetaminophen 1 tab PO Q4-6H PRN #10 tab 01/28/18 Allergies Allergy/AdvReac Type Severity Reaction Status Date / Time Sulfa (Sulfonamide Allergy Mild HIVES Verified 03/08/19 21:38 Antibiotics) latex [LATEX] Allergy Unknown Verified 03/08/19 21:38 Review of Systems <Juanita Robles DO - Last Filed: 06/27/19 21:19> Review of Systems ROS Unobtainable: All systems reviewed & are unremarkable except as noted in HPI and below Patient History <Juanita Robles DO - Last Filed: 06/27/19 21:19> Social History Smoking Status: Current every day smoker Smoking Status: Current every day smoker alcohol intake frequency: other Substance Use Type: does not use Exam <Juanita Robles DO - Last Filed: 06/27/19 21:19> Narrative Exam Narrative: GENERAL: Alert and oriented x three, well-nourished female in moderate distress. HEENT: Head normocephalic, atraumatic, EOMI, pupils reactive, face symmetric, moist mucous membranes NECK: Supple, full range of motion CARDIOVASCULAR: Regular rate and rhythm without murmurs, rubs or gallops. RESPIRATORY: Breath sounds equal bilaterally, no wheezes rales or rhonchi. ABDOMEN: Soft, nontender. Normoactive bowel sounds all 4 quadrants. No guarding or rebound, rigidity, no mass EXTREMITIES: Normal range of motion, no clubbing. Patient has redness of all tends toes but no discrete erythema or skin color changes right versus left that I can appreciate. No cyanosis or pallor. Patient is too tender to allow me to palpate dorsalis pedis but I am able to palpate tibialis. She has normal sensation I can touch the distal ends of the toes without any pain. It seems to be located mostly on the dorsum of foot. The plantar side of the foot nontender. Patient does not have any bruising or ecchymosis. Neurovascularly intact NEUROLOGICAL: Cranial nerves II through XII grossly intact. Moving all extremities SKIN: Warm, dry, no petechiae, no rashes or lesions. Initial Vital Signs Initial Vital Signs: Vital Signs Temperature 98.3 F 06/27/19 06:02 Pulse Rate 112 H 06/27/19 06:02 Respiratory Rate 22 06/27/19 06:02 Blood Pressure 131/53 L 06/27/19 06:02 Pulse Oximetry 96 06/27/19 06:02 <Lesli Diaz MD - Last Filed: 06/27/19 08:47> Initial Vital Signs Initial Vital Signs: Vital Signs Temperature 98.3 F 06/27/19 06:02 Pulse Rate 112 H 06/27/19 06:02 Respiratory Rate 22 06/27/19 06:02 Blood Pressure 131/53 L 06/27/19 06:02 Pulse Oximetry 96 06/27/19 06:02 Course <Juanita Robles DO - Last Filed: 06/27/19 21:19> Orders Ordered: Discontinued Medications Ketorolac Tromethamine (Toradol) 30 mg IM NOW ONE Stop: 06/27/19 06:04 Last Admin: 06/27/19 06:09 Dose: 30 mg Documented by: DANIEL Vital Signs Vital signs: Vital Signs - 8 hr 06/27/19 06:02 06/27/19 08:14 Temperature 98.3 F Pulse Rate 112 H 87 Respiratory Rate 22 14 Blood Pressure 131/53 L Blood Pressure [left upper arm] 103/46 L Pulse Oximetry 96 97 <Lesli Diaz MD - Last Filed: 06/27/19 08:47> Course Course Narrative: Joe note: The patient was signed out to me by Dr. Robles, pending laboratory studies. She had already had a negative ultrasound series of the right lower extremity, and x-rays of the foot were also negative. I did not find evidence of an emergent condition causing patient's symptoms. patient is given a prescription for Neurontin. She is already on heavy narcotic treatment as an outpatient for fibromyalgia and no further narcotics will be given. Patient is deemed stable for discharge home. We have discussed home management of symptoms, as well as the usual indications for return. Orders Ordered: Discontinued Medications Ketorolac Tromethamine (Toradol) 30 mg IM NOW ONE Stop: 06/27/19 06:04 Last Admin: 06/27/19 06:09 Dose: 30 mg Documented by: DANIEL Vital Signs Vital signs: Vital Signs - 8 hr 06/27/19 06:02 06/27/19 08:14 Temperature 98.3 F Pulse Rate 112 H 87 Respiratory Rate 22 14 Blood Pressure 131/53 L Blood Pressure [left upper arm] 103/46 L Pulse Oximetry 96 97 MDM - Extremity (Nontraumatic) <Juanita Robles DO - Last Filed: 06/27/19 21:19> Lab Data Result diagrams: 06/27/19 06:45 Labs: Lab Results 06/27/19 06/27/19 Range/Units 06:45 06:45 Sodium 140 (137-145) mmol/L Potassium 4.7 (3.4-5.1) mmol/L Chloride 109 H (98-107) mmol/L Carbon Dioxide 22 (22-32) mmol/L BUN 20 H (7-17) mg/dL Creatinine 0.80 (0.52-1.04) mg/dL Estimated GFR > 60.0 (>60) mL/min BUN/Creatinine Ratio 25.0 H (6-22) Glucose 71 (70-100) mg/dL Calcium 9.2 (8.4-10.2) mg/dL Serum , Qual Negative (Negative) MDM Narrative Medical decision making narrative: Patient comes in with complaint of sudden onset of severe pain on the dorsum of her foot that is atraumatic. Patient physical exam findings are fairly benign other than patient does appear quite uncomfortable. She will not allow me to palpate her dorsalis pedis but she has a good tibialis. X-ray, imaging of the vasculature as well as lab work was ordered. Patient was given 1 dose of Toradol. She was signed out to Dr. Diaz while these were pending for final disposition. <Lesli Diaz MD - Last Filed: 06/27/19 08:47> Medical Records Attestation: I reviewed the patient's medical records. Lab Data Attestation: I reviewed the patient's lab results. Labs: Lab Results 06/27/19 06/27/19 Range/Units 06:45 06:45 Sodium 140 (137-145) mmol/L Potassium 4.7 (3.4-5.1) mmol/L Chloride 109 H (98-107) mmol/L Carbon Dioxide 22 (22-32) mmol/L BUN 20 H (7-17) mg/dL Creatinine 0.80 (0.52-1.04) mg/dL Estimated GFR > 60.0 (>60) mL/min BUN/Creatinine Ratio 25.0 H (6-22) Glucose 71 (70-100) mg/dL Calcium 9.2 (8.4-10.2) mg/dL Serum , Qual Negative (Negative) Discharge Plan Departure Patient Disposition: Home Clinical Impression: Acute pain of right foot Discharge Date/Time: 06/27/19 08:43 Instructions: DI for Foot Pain Activity Restrictions/Additional Instructions: Your tests look good. There is no evidence of an emergent cause of pain in the foot. You are on very strong pain medication already, and there is not really anything different that you can be on at this time for that. You may use your home medication, as needed. Please call your doctor tomorrow if you feel you need to adjust your medication regimen otherwise. Follow up with primary care in the next 2-3 days for recheck, if needed. Call Friday morning for an appointment. Take medication as prescribed. You may continue your home medications as prescribed. Return to the ER for fevers, new weakness, pallor or cyanosis, increasing swelling of the leg or foot, signs of infection of other new or concerning symptoms. Prescriptions: No Action acetaminophen [Tylenol Extra Strength] 500 MG tablet 1,000 mg PO Q6HP PRNQty: 0 RF: 0 pramipexole [Mirapex] 0.25 MG tablet 0.25 mg PO HS Qty: 0 RF: 0 cyclobenzaprine 10 MG tablet 10 mg PO Q8HP PRNQty: 20 RF: 0 epinephrine [EpiPen 2-Pacheco] 0.3 mg/0.3 mL auto-injector 0.3 mg IM Q10M PRN (Reason: anaphylaxis) Qty: 2 RF: 0 hydrocodone-acetaminophen 5-325 mg tablet 1 tab PO Q4-6H PRN (Reason: pain) Qty: 10 RF: 0 Stand Alone Forms: Work Release Note
[2019-06-27] MEDS: KETOROLAC 60 MG/2 ML VIAL 30 MG IM (06:09)
--- NOTE | 2019-06-27 06:15 | DI.US.S_ITS ---
PROCEDURE: US ARTERIAL DUPLEX LE RT INDICATIONS: SUDDEN ONSET SEVERE RIGHT FOOT PAIN TECHNIQUE: Color and pulse Doppler interrogation was performed of the right lower extremity arterial system, with image documentation. COMPARISON: None. FINDINGS: Common femoral artery: 117 cm/sec, with biphasic flow. Deep femoral artery: 56 cm/sec, with biphasic flow. Proximal superficial femoral artery: 101 cm/sec, with biphasic flow. Mid superficial femoral artery: 125 cm/sec, with biphasic flow. Distal superficial femoral artery: 78 cm/sec, with biphasic flow. Popliteal artery: 100 cm/sec, with biphasic flow. Posterior tibial artery: 79 cm/sec, with biphasic flow. Anterior tibial artery/dorsalis pedis: 88 cm/sec, with biphasic flow in the proximal anterior tibial artery. Flow was not visualized in the dorsalis pedis artery distally.. Calero-scale imaging description: There is scattered multifocal atherosclerotic plaque. IMPRESSION: 1. Flow not visualized in the dorsalis pedis artery distally. A high-grade stenosis or occlusion cannot be excluded. 2. Elsewhere, no evidence of focal arterial stenosis in the right lower extremity. Dictated by: Kevan Vega M.D. on 06/27/2019 at 7:01 Approved by: Kvean Vega M.D. on 06/27/2019 at 7:05
[2019-06-27 07:05] LABS: Blood Urea Nitrogen 20 mg/dL (7-17); Calcium 9.2 mg/dL (8.4-10.2); Carbon Dioxide 22 mmol/L (22-32); Chloride 109 mmol/L (98-107); Estimated Glomerular Filt Rate > 60.0 mL/min (>60); Glucose 71 mg/dL (70-100); HEMOLYSIS 33 (0-50); Potassium 4.7 mmol/L (3.4-5.1); Pregnancy Test Serum,Qual Negative (Negative); Sodium 140 mmol/L (137-145)
[2019-06-27 08:14] VITALS: BP 103/46; PULSE 87; RESP 14; O2SAT 97
== END 2019-06-27 08:43 | disposition home or self-care (01) ==
PROVIDERS: Emergency Medicine; Emergency Provider Emergency Medicine
DX: M79.671 Pain in right foot (principal)
CPT/HCPCS: 36415; 73630; 80048; 84703; 93926; 93971; 96372; 99283; 99284; J1885

== ENCOUNTER 2020-01-19 13:21 | Emergency (ER) | payer OTHER, SELFPAY ==
[2020-01-19 13:25] VITALS: BP 134/70; PULSE 117; RESP 17; TEMP 36.7; O2SAT 99; BMI 25.4
--- NOTE | 2020-01-19 13:38 | DI.CT.S_ITS ---
PROCEDURE: CT ABDOMEN PELVIS W CON INDICATIONS: RLQ abd px. r/o incarcerated hernia TECHNIQUE: After the administration of oral and intravenous contrast, 5 mm thick sections acquired from the diaphragms to the symphysis. 5 mm thick coronal and sagittal reformats were performed. For radiation dose reduction, the following was used: automated exposure control, adjustment of mA and/or kV according to patient size. COMPARISON: [facility], CT, CT ABDOMEN PELVIS WITH CONTRAST, 02/18/2018, 19:08. [facility], CT, CT ABDOMEN PELVIS W CON, 01/28/2018, 18:52. [facility], CT, CT KUB, 11/10/2016, 21:24. [facility], CT, KIDNEY/ URETER/BLADDER, 12/12/2014, 23:43. FINDINGS: Image quality: Diagnostic. ABDOMEN: Lung bases: Lung bases are clear. Heart size is normal. Solid organs: The liver is hypodense when compared to the spleen. There is a small more focal area of low attenuation involving the liver along the falciform ligament. There is no intrahepatic or extrahepatic biliary dilatation. The gallbladder is decompressed and not well evaluated. The spleen, adrenals, and pancreas are within normal limits. Both kidneys are normal in size and are otherwise unremarkable. There is no hydronephrosis. No definite renal calculi are appreciated. Peritoneum and bowel: The stomach is unremarkable. The small bowel loops are nondilated. Moderate amount of residual stool is identified within the colon. The appendix is surgically absent. Clips are seen at the base of the cecum. Minimal distal colonic diverticulosis is evident without surrounding inflammation to suggest diverticulitis. No free fluid, loculated fluid collection, or free air is evident. There is a small fat containing periumbilical hernia. Nodes and vessels: No retroperitoneal or mesenteric adenopathy. Aorta and inferior vena cava are normal in caliber. There is aortic atherosclerosis. Bones: No acute fracture or suspicious osseous lesion is identified. PELVIS: Genitourinary: Bladder wall thickness is normal. The uterus is surgically absent. The ovaries are not definitively identified and may have been surgically removed. Miscellaneous: No inguinal hernias or adenopathy. No free fluid or loculated fluid collection is evident. Bones: No suspicious bony lesions. No acute pelvic fractures are evident. IMPRESSION: 1. No acute process is appreciated within the abdomen or pelvis. 2. No bowel obstruction. 3. Possible hepatic steatosis. 4. Small fat containing periumbilical hernia. 5. Distal aortic atherosclerosis unusual for age. Dictated by: Lamin Walsh M.D. on 01/19/2020 at 14:45 Approved by: Lamin Walsh M.D. on 01/19/2020 at 14:52
--- NOTE | 2020-01-19 13:49 | ED.ABDPAIN ---
HPI - Abdominal Pain <JENNIE Johnson - Last Filed: 01/19/20 18:11> General Chief Complaint: Abdominal Pain Stated Complaint: right lower quad 7-10 pain x3 day Time Seen by Provider: 01/19/20 13:29 Source: patient Mode of arrival: Ambulatory Limitations: no limitations History of Present Illness HPI narrative: 39-year-old female with history of appendectomy, oophorectomy and hysterectomy, and fibromyalgia presents emergency department complaining of right lower abdominal/groin pain for the past 48 hours. She states she was lifting heavy objects when she felt a sudden right-sided pain. Yesterday she was lying in bed performing gentle stretches and decreased activity in hopes that the pain was decided. However, the pain has continued. She states the pain is a dull aching and occasionally sharp stabbing 8/10 that is worse with moving around in sitting up and better with lying. She denies any bulges or masses to the area. She denies any dysuria, flank pain, fevers, chills, nausea, vomiting, diarrhea, chest pain, shortness of breath, or any other concerns. Related Data Home Medications Medication Instructions Recorded Confirmed acetaminophen [Tylenol Extra 1,000 mg PO Q6HP PRN #0 04/21/17 Strength] pramipexole [Mirapex] 0.25 mg PO HS #0 04/21/17 Previous Rx's Medication Instructions Recorded cyclobenzaprine 10 mg PO Q8HP PRN #20 tab 04/21/17 epinephrine [EpiPen 2-Pacheco] 0.3 mg IM Q10M PRN #2 each 11/25/17 hydrocodone-acetaminophen 1 tab PO Q4-6H PRN #10 tab 01/28/18 cyclobenzaprine 10 mg PO BEDTIME PRN #10 tab 01/19/20 Allergies Allergy/AdvReac Type Severity Reaction Status Date / Time Sulfa (Sulfonamide Allergy Mild HIVES Verified 01/19/20 13:31 Antibiotics) latex [LATEX] Allergy Unknown Verified 01/19/20 13:31 Review of Systems <JENNIE Johnson - Last Filed: 01/19/20 18:11> Review of Systems Narrative: REVIEW OF SYSTEMS: GENERAL: Denies fever, chills, malaise, or wt. loss. HENT: No head trauma. EYES: No vision changes. CARDIOVASCULAR: No chest pain, palpitations, or orthopnea. RESPIRATORY: No shortness of breath or cough. GASTROINTESTINAL: Complains of right lower abdominal pain, see HPI GENITOURINARY: No flank pain, urinary incontinence, hesitancy, frequency, or dysuria. No vaginal discharge or dyspareunia. Denies concerns for STIs MUSCULOSKELETAL: No pain, weakness, or trauma. INTEGUMENTARY: No rash, lesions, or pruritus. NEURO: No numbness or tingling. PSYCH: No behavior or mood changes. Patient History <JENNIE Johnson - Last Filed: 01/19/20 18:11> Surgical History H/O: hysterectomy (Acute) Hx of appendectomy (Acute) Social History Smoking Status: Current every day smoker Smoking Status: Current every day smoker alcohol intake frequency: other Substance Use Type: does not use Exam <JENNIE Johnson - Last Filed: 01/19/20 18:11> Initial Vital Signs Initial Vital Signs: Vital Signs Temperature 98.1 F 01/19/20 13:25 Pulse Rate 117 H 01/19/20 13:25 Respiratory Rate 17 01/19/20 13:25 Blood Pressure 134/70 01/19/20 13:25 Pulse Oximetry 99 01/19/20 13:25 PHYSICAL EXAMINATION: GENERAL: Well groomed, alert, and cooperative. Answers questions promptly and appropriately. Vital signs noted. HENT: Normocephalic, atraumatic. Hearing intact. Oral mucosa is pink and moist. EYES: Conjunctiva pink, sclera white, no periorbital swelling. CARDIOVASCULAR: S1 and S2 sounds normal. Tachycardia, regular rhythm, no murmurs, clicks, or bruits. No pedal edema. RESPIRATORY: Normal respiratory rate, trachea midline, airway patent. No stridor, nasal flaring or accessory muscle use. Lungs are clear in all cevallos without wheeze, rhonchi, or crackles. GASTROINTESTINAL: Bowel sounds normoactive. Abdomen is soft, right lower quadrant-to right groin tenderness. No masses palpable. Notable discomfort with position changes. No organomegaly, no palpable masses. GENITALURINARY: No flank tenderness. MUSCULOSKELETAL: Normal gait and coordination. Equal tone and mass bilaterally. EXTREMITIES: CMS intact, no pedal edema. SKIN: Warm, dry, soft, appropriate color for ethnicity. No lesions, rashes, or wounds to visualized areas. NEURO: Alert and Oriented X 3. Good coordination. No ataxia, or sensory deficits, or cognitive issues. PSYCH: Appropriate affect and mood. <January Valadez DO - Last Filed: 01/20/20 06:53> Initial Vital Signs Initial Vital Signs: Vital Signs Temperature 98.1 F 01/19/20 13:25 Pulse Rate 117 H 01/19/20 13:25 Respiratory Rate 17 01/19/20 13:25 Blood Pressure 134/70 01/19/20 13:25 Pulse Oximetry 99 01/19/20 13:25 Course <JENNIE Johnson - Last Filed: 01/19/20 18:11> Course Course Narrative: Patient was given fluids and Toradol, reported decreased pain after administration medications. Pain later returned but not as severe. Orders Ordered: Discontinued Medications Sodium Chloride (Normal Saline 0.9%) 1,000 mls @ 1,000 mls/hr IV BOLUS ONE Stop: 01/19/20 14:37 Last Infusion: 01/19/20 16:45 Dose: 0 mls/hr Documented by: Admin: 01/19/20 14:56 Dose: 1,000 mls/hr Documented by: ARTURO Ketorolac Tromethamine (Toradol) 30 mg IV NOW ONE Stop: 01/19/20 13:39 Last Admin: 01/19/20 14:56 Dose: 30 mg Documented by: ARTURO Vital Signs Vital signs: Vital Signs - 8 hr 01/19/20 13:25 01/19/20 16:08 01/19/20 16:54 Temperature 98.1 F Pulse Rate 117 H 77 87 Respiratory Rate 17 24 20 Blood Pressure 134/70 132/63 121/73 Pulse Oximetry 99 99 99 <January Valadez DO - Last Filed: 01/20/20 06:53> Orders Ordered: Discontinued Medications Sodium Chloride (Normal Saline 0.9%) 1,000 mls @ 1,000 mls/hr IV BOLUS ONE Stop: 01/19/20 14:37 Last Infusion: 01/19/20 16:45 Dose: 0 mls/hr Documented by: Admin: 01/19/20 14:56 Dose: 1,000 mls/hr Documented by: ARTURO Ketorolac Tromethamine (Toradol) 30 mg IV NOW ONE Stop: 01/19/20 13:39 Last Admin: 01/19/20 14:56 Dose: 30 mg Documented by: ARTURO Vital Signs Vital signs: Vital Signs - 8 hr 01/19/20 13:25 01/19/20 16:08 01/19/20 16:54 Temperature 98.1 F Pulse Rate 117 H 77 87 Respiratory Rate 17 24 20 Blood Pressure 134/70 132/63 121/73 Pulse Oximetry 99 99 99 MDM - Abdominal Pain <JENNIE Johnson - Last Filed: 01/19/20 18:11> Medical Records Attestation: I reviewed the patient's medical records. Lab Data Attestation: I reviewed the patient's lab results. Result diagrams: 01/19/20 14:00 01/19/20 14:00 Labs: Lab Results 01/19/20 01/19/20 Range/Units 14:00 14:00 WBC 7.0 (4.5-11.0) X10^3/uL RBC 3.75 L (4.0-5.2) X10^6/uL Hgb 12.7 (12.0-16.0) g/dL Hct 36.8 (36-46) % MCV 98.3 (80-100) fL MCH 33.9 (26-34) PG MCHC 34.4 (30-36) % RDW 12.5 (11.6-14.8) % Plt Count 247 (150-400) X10^3/uL Neut % (Auto) 75.3 H (50-75) % Lymph % (Auto) 18.7 L (25-40) % [place] % (Auto) 4.9 (3-14) % Eos % (Auto) 0.5 L (2-4) % Baso % (Auto) 0.6 (0-2) % Neut # (Auto) 5300 (5006-8794) /uL Lymph # (Auto) 1300 (0723-6202) /uL [place] # (Auto) 300 (0-900) /uL Eos # (Auto) 0 (0-450) /uL Baso # (Auto) 0 (0-100) /uL Sodium 139 (137-145) mmol/L Potassium 4.7 (3.4-5.1) mmol/L Chloride 111 H (98-107) mmol/L Carbon Dioxide 24 (22-32) mmol/L BUN 9 (7-17) mg/dL Creatinine 0.69 (0.52-1.04) mg/dL Estimated GFR > 60.0 (>60) mL/min BUN/Creatinine Ratio 13.0 (6-22) Glucose 99 (70-100) mg/dL Calcium 9.7 (8.4-10.2) mg/dL Total Bilirubin 0.3 (0.2-1.3) mg/dL AST 20 (14-36) IU/L ALT 12 (<35) IU/L Alkaline Phosphatase 63 (38-126) U/L Total Protein 7.0 (6.3-8.2) g/dL Albumin 4.1 (3.5-5.0) g/dL Globulin 2.9 (1.7-4.1) g/dL Albumin/Globulin Ratio 1.4 (1.0-2.8) Lipase 55 (23-300) U/L Point of care testing: Urine Dip Bedside Urine Glucose Negative Bedside Urine Bilirubin - Negative Bedside Urine Ketone - Negative Urine Specific [place] 1.015 Bedside Urine Occult Blood - Negative Bedside Urine pH 6.0 Bedside Urine Protein - Negative Bedside Urine Urobilinogen - Negative Bedside Urine Nitrite - Negative Bedside Urine Leukocytes - Negative Esterase Imaging Data CT scan - abdomen/pelvis: Radiologist's Impression: [address] [address] [address] Scan Report Signed Patient: Ruma Haines LMR#: [id number] : 1980Acct:[id number] Age/Sex: 39 / FDate of Service: 01/19/20 Loc: ED Accession Number: [id number] Procedure: CT abdomen pelvis w con Ordering Provider: Yvette Campbell PROCEDURE: CT ABDOMEN PELVIS W CON INDICATIONS: RLQ abd px. r/o incarcerated hernia TECHNIQUE: After the administration of oral and intravenous contrast, 5 mm thick sections acquired from the diaphragms to the symphysis. 5 mm thick coronal and sagittal reformats were performed. For radiation dose reduction, the following was used: automated exposure control, adjustment of mA and/or kV according to patient size. COMPARISON: [facility], CT, CT ABDOMEN PELVIS WITH CONTRAST, 02/18/2018, 19:08. [facility], CT, CT ABDOMEN PELVIS W CON, 01/28/2018, 18:52. [facility], CT, CT KUB, 11/10/2016, 21:24. [facility], CT, KIDNEY/ URETER/BLADDER, 12/12/2014, 23:43. FINDINGS: Image quality: Diagnostic. ABDOMEN: Lung bases: Lung bases are clear. Heart size is normal. Solid organs: The liver is hypodense when compared to the spleen. There is a small more focal area of low attenuation involving the liver along the falciform ligament. There is no intrahepatic or extrahepatic biliary dilatation. The gallbladder is decompressed and not well evaluated. The spleen, adrenals, and pancreas are within normal limits. Both kidneys are normal in size and are otherwise unremarkable. There is no hydronephrosis. No definite renal calculi are appreciated. Peritoneum and bowel: The stomach is unremarkable. The small bowel loops are nondilated. Moderate amount of residual stool is identified within the colon. The appendix is surgically absent. Clips are seen at the base of the cecum. Minimal distal colonic diverticulosis is evident without surrounding inflammation to suggest diverticulitis. No free fluid, loculated fluid collection, or free air is evident. There is a small fat containing periumbilical hernia. Nodes and vessels: No retroperitoneal or mesenteric adenopathy. Aorta and inferior vena cava are normal in caliber. There is aortic atherosclerosis. Bones: No acute fracture or suspicious osseous lesion is identified. PELVIS: Genitourinary: Bladder wall thickness is normal. The uterus is surgically absent. The ovaries are not definitively identified and may have been surgically removed. Miscellaneous: No inguinal hernias or adenopathy. No free fluid or loculated fluid collection is evident. Bones: No suspicious bony lesions. No acute pelvic fractures are evident. IMPRESSION: 1. No acute process is appreciated within the abdomen or pelvis. 2. No bowel obstruction. 3. Possible hepatic steatosis. 4. Small fat containing periumbilical hernia. 5. Distal aortic atherosclerosis unusual for age. Dictated by: Lamin Walsh M.D. on 01/19/2020 at 14:45 Approved by: Lamin Walsh M.D. on 01/19/2020 at 14:52 MDM Narrative Medical decision making narrative: 39-year-old female with a history of a for oophorectomy, hysterectomy, and appendectomy presents emergency department for right-sided abdominal pain after moving heavy objects. No masses were palpated, CT was ordered to rule out any hernia or other etiologies such as colitis. Laboratory work is within normal limits. CT without explanation for right quadrant pain. I suspect patient's pain is most likely caused by a muscle strain given history, onset of pain, and pain is worse with movement especially when sitting up. Less likely appendicitis as patient has had appendectomy. Less likely ovarian torsion or PID as patient has had hysterectomy and oophorectomy. Less likely gastrointestinal etiology has patient denies suspicion symptoms nausea, vomiting, fever, or tachycardia,. Patient was given a muscle relaxer, she was encouraged to perform gentle stretches and avoid lifting heavy objects for the next few days. Patient was encouraged to schedule an appoint with her primary care provider for further follow-up and discussion of PT if symptoms continue. Strict return precautions given for new or worsening symptoms. Patient agreed to plan of care verbalized understanding. <January Valadez, DO - Last Filed: 01/20/20 06:53> Lab Data Labs: Lab Results 01/19/20 01/19/20 Range/Units 14:00 14:00 WBC 7.0 (4.5-11.0) X10^3/uL RBC 3.75 L (4.0-5.2) X10^6/uL Hgb 12.7 (12.0-16.0) g/dL Hct 36.8 (36-46) % MCV 98.3 (80-100) fL MCH 33.9 (26-34) PG MCHC 34.4 (30-36) % RDW 12.5 (11.6-14.8) % Plt Count 247 (150-400) X10^3/uL Neut % (Auto) 75.3 H (50-75) % Lymph % (Auto) 18.7 L (25-40) % [place] % (Auto) 4.9 (3-14) % Eos % (Auto) 0.5 L (2-4) % Baso % (Auto) 0.6 (0-2) % Neut # (Auto) 5300 (1624-6891) /uL Lymph # (Auto) 1300 (0253-6859) /uL [place] # (Auto) 300 (0-900) /uL Eos # (Auto) 0 (0-450) /uL Baso # (Auto) 0 (0-100) /uL Sodium 139 (137-145) mmol/L Potassium 4.7 (3.4-5.1) mmol/L Chloride 111 H (98-107) mmol/L Carbon Dioxide 24 (22-32) mmol/L BUN 9 (7-17) mg/dL Creatinine 0.69 (0.52-1.04) mg/dL Estimated GFR > 60.0 (>60) mL/min BUN/Creatinine Ratio 13.0 (6-22) Glucose 99 (70-100) mg/dL Calcium 9.7 (8.4-10.2) mg/dL Total Bilirubin 0.3 (0.2-1.3) mg/dL AST 20 (14-36) IU/L ALT 12 (<35) IU/L Alkaline Phosphatase 63 (38-126) U/L Total Protein 7.0 (6.3-8.2) g/dL Albumin 4.1 (3.5-5.0) g/dL Globulin 2.9 (1.7-4.1) g/dL Albumin/Globulin Ratio 1.4 (1.0-2.8) Lipase 55 (23-300) U/L Point of care testing: Urine Dip Bedside Urine Glucose Negative Bedside Urine Bilirubin - Negative Bedside Urine Ketone - Negative Urine Specific [place] 1.015 Bedside Urine Occult Blood - Negative Bedside Urine pH 6.0 Bedside Urine Protein - Negative Bedside Urine Urobilinogen - Negative Bedside Urine Nitrite - Negative Bedside Urine Leukocytes - Negative Esterase Discharge Plan Departure Patient Disposition: Home Clinical Impression: Muscle strain Discharge Date/Time: 01/19/20 16:57 Instructions: DI for Groin Strain Activity Restrictions/Additional Instructions: Thank you for entrusting me with your care today. As discussed, your laboratory work, urinalysis, and CT are non-remarkable. Your periumbilical hernia was visualized. Incidental finding of increased distal aortic atherosclerosis was seen on imaging. However, these finding would not cause the pain in your right groin. I suspect your pain is most likely caused by a muscle strain. I recommend gentle stretches, heat to the area, and muscle relaxers. Muscle relaxers make you drowsy, do not drink alcohol with these medications in do not drive. Please schedule an appointment with a primary care provider in the next few weeks for further evaluation and discussion of possible physical therapy if pain continues. Return emergency department for any new or worsening symptoms such as severe abdominal pain, uncontrollable vomiting, high fevers, chest pain, shortness of breath, or any other concerns. Prescriptions: New cyclobenzaprine 5 mg tablet 10 mg PO BEDTIME PRN (Reason: muscle spasm) Qty: 10 RF: 0 No Action acetaminophen [Tylenol Extra Strength] 500 MG tablet 1,000 mg PO Q6HP PRNQty: 0 RF: 0 pramipexole [Mirapex] 0.25 MG tablet 0.25 mg PO HS Qty: 0 RF: 0 cyclobenzaprine 10 MG tablet 10 mg PO Q8HP PRNQty: 20 RF: 0 epinephrine [EpiPen 2-Pacheco] 0.3 mg/0.3 mL auto-injector 0.3 mg IM Q10M PRN (Reason: anaphylaxis) Qty: 2 RF: 0 hydrocodone-acetaminophen 5-325 mg tablet 1 tab PO Q4-6H PRN (Reason: pain) Qty: 10 RF: 0 Stand Alone Forms: Work Release Note <January Valadez DO - Last Filed: 01/20/20 06:53> Cosign ED Attending Cosjoseature Attestation: I was immediately available in the department for consultation. Documentation has been reviewed. I agree with assessment and plan.
[2020-01-19] MEDS: KETOROLAC 60 MG/2 ML VIAL 30 MG IV (14:56)
[2020-01-19] MEDS: SODIUM CHLORIDE 0.9% 1,000 ML 1000 ML IV (14:56)
[2020-01-19 14:57] LABS: Add Manual Diff / Slide Review NO; Basophils Absolute Auto 0 /uL (0-100); Basophils Percent Auto 0.6 % (0-2); Eosinophils Absolute Auto 0 /uL (0-450); Eosinophils Percent Auto 0.5 % (2-4); Hematocrit 36.8 % (36-46); Hemoglobin 12.7 g/dL (12.0-16.0); Lymphocytes Absolute Auto 1300 /uL (1100-4500); Lymphocytes Percent Auto 18.7 % (25-40); Mean Corpuscular HGB Conc 34.4 % (30-36); Mean Corpuscular Hemoglobin 33.9 PG (26-34); Mean Corpuscular Volume 98.3 fL (80-100); Monocytes Absolute Auto 300 /uL (0-900); Monocytes Percent Auto 4.9 % (3-14); Neutrophils Absolute Auto 5300 /uL (1500-7000); Neutrophils Percent Auto 75.3 % (50-75); Platelet Count 247 X10^3/uL (150-400); Red Blood Cell Count 3.75 X10^6/uL (4.0-5.2); Red Cell Distribution Width 12.5 % (11.6-14.8)
[2020-01-19 15:10] LABS: Alanine Aminotransferase 12 IU/L (<35); Albumin 4.1 g/dL (3.5-5.0); Albumin Globulin Ratio 1.4 (1.0-2.8); Alkaline Phosphatase 63 U/L (38-126); Aspartate Aminotransferase 20 IU/L (14-36); Bilirubin Total 0.3 mg/dL (0.2-1.3); Blood Urea Nitrogen 9 mg/dL (7-17); Calcium 9.7 mg/dL (8.4-10.2); Carbon Dioxide 24 mmol/L (22-32); Chloride 111 mmol/L (98-107); Estimated Glomerular Filt Rate > 60.0 mL/min (>60); Globulin 2.9 g/dL (1.7-4.1); Glucose 99 mg/dL (70-100); HEMOLYSIS < 15 (0-50); Lipase 55 U/L (23-300); Potassium 4.7 mmol/L (3.4-5.1); Sodium 139 mmol/L (137-145)
[2020-01-19 16:08] VITALS: BP 132/63; PULSE 77; RESP 24; O2SAT 99
[2020-01-19 16:54] VITALS: BP 121/73; PULSE 87; RESP 20; O2SAT 99
== END 2020-01-19 16:57 | disposition home or self-care (01) ==
PROVIDERS: Emergency Provider Nurse Practitioner
DX: S39.011A Strain of muscle, fascia and tendon of abdomen, initial encounter (principal); X50.0XXA Overexertion from strenuous movement or load, initial encounter
CPT/HCPCS: 36415; 74177; 80053; 81003; 83690; 85025; 96361; 96374; 99284; 99285; A9579; J1885

== ENCOUNTER 2020-01-29 06:18 | Emergency (ER) | payer OTHER, SELFPAY ==
--- NOTE | 2020-01-29 06:22 | ED.GENADULT ---
HPI - General Adult <Demetrio Sandoval DO - Last Filed: 01/29/20 18:07> General Chief complaint: Extremity Problem,Nontraumatic Stated complaint: something wrong with feet Time Seen by Provider: 01/29/20 06:19 Source: patient Mode of arrival: Ambulatory Limitations: no limitations History of Present Illness HPI narrative: Patient is a 39-year-old female with multiple medical problems here for evaluation of bilateral foot pain with left being greater than right. 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 Was reportedly at her normal [facility] until a couple hours into her shift for she started having pain in her feet. This worsened as the night went on until this morning when she came to the emergency department because the pain got so bad that she was having problems walking. Denies any fever. Denies any trauma. Reports redness to her feet. No new exposures. Is not wearing a new pair shoes. Review the patient's medical record shows in June of last year she had symptoms which seem to be very similar to what she has this time however patient states this time it is much more intense since coming up her legs. Has not tried anything for symptoms prior to arrival Related Data Home Medications Medication Instructions Recorded Confirmed acetaminophen [Tylenol Extra 1,000 mg PO Q6HP PRN #0 04/21/17 Strength] pramipexole [Mirapex] 0.25 mg PO HS #0 04/21/17 Previous Rx's Medication Instructions Recorded cyclobenzaprine 10 mg PO Q8HP PRN #20 tab 04/21/17 epinephrine [EpiPen 2-Pacheco] 0.3 mg IM Q10M PRN #2 each 11/25/17 hydrocodone-acetaminophen 1 tab PO Q4-6H PRN #10 tab 01/28/18 cyclobenzaprine 10 mg PO BEDTIME PRN #10 tab 01/19/20 ketorolac 10 mg PO Q6H PRN #14 tab 01/29/20 Allergies Allergy/AdvReac Type Severity Reaction Status Date / Time Sulfa (Sulfonamide Allergy Mild HIVES Verified 01/19/20 13:31 Antibiotics) latex [LATEX] Allergy Unknown Verified 01/19/20 13:31 Review of Systems <DO Larisa Jefferson Last Filed: 01/29/20 18:07> Constitutional Constitutional: Denies fever(s) Cardiovascular Cardiovascular: Denies chest pain and Denies dyspnea Respiratory Respiratory: Denies dyspnea Gastrointestinal Gastrointestinal: Denies abdominal pain Musculoskeletal Comments: Bilateral feet pain Integumentary/Breasts Comments: Redness to bilateral feet Neurologic Comments: Tingling to bilateral feet Hematologic/Lymphatic Hematologic/Lymphatic: Denies easy bleeding and Denies easy bruising Allergic/Immunologic Allergic/Immunologic: Denies urticaria Patient History <DO Larisa Jefferson Last Filed: 01/29/20 18:07> Medical History Fibromyalgia (Acute) Surgical History H/O: hysterectomy (Acute) Hx of appendectomy (Acute) Social History Smoking Status: Current every day smoker Smoking Status: Current every day smoker alcohol intake frequency: other Substance Use Type: does not use Exam <DO Larisa Jefferson Last Filed: 01/29/20 18:07> Initial Vital Signs Initial Vital Signs: Vital Signs Pulse Oximetry 96 01/29/20 06:24 Const General: other (Crying) HENMT Head: normal to inspection and normocephalic Resp Effort & Inspection: normal respiratory effort Cardio Rate: regular rate Pulses: dorsalis pedis present bilaterally Skin Other: Patient with warm feet. Redness on the anterior aspect of both feet left being greater than right. Neuro Sensory Exam: no sensory deficits noted Extrem Other: Patient with tenderness with even light palpation of bilateral feet. Her calf muscles are soft. Can flex and extend the ankles. Psych Appearance: other (Crying) <DO Larisa Delvalle Last Filed: 01/29/20 11:37> Initial Vital Signs Initial Vital Signs: Vital Signs Pulse Oximetry 96 01/29/20 06:24 Course <DO Larisa Jefferson Last Filed: 01/29/20 18:07> Orders Ordered: Discontinued Medications Ketorolac Tromethamine (Toradol) 30 mg IV NOW ONE Stop: 01/29/20 06:34 Last Admin: 01/29/20 07:15 Dose: Not Given Documented by: RADHA Ketorolac Tromethamine (Toradol) 30 mg IM NOW ONE Stop: 01/29/20 06:55 Last Admin: 01/29/20 06:59 Dose: 30 mg Documented by: ORIANA Vital Signs Vital signs: Vital Signs - 8 hr 01/29/20 06:24 01/29/20 06:28 01/29/20 06:30 Temperature 98.5 F Pulse Rate 92 H 106 H Respiratory Rate 25 H Blood Pressure 116/86 116/86 Pulse Oximetry 96 97 97 01/29/20 08:55 Temperature Pulse Rate 81 Respiratory Rate Blood Pressure 109/63 Pulse Oximetry 98 <Alfredo Menjivar DO - Last Filed: 01/29/20 11:37> Course Course Narrative: Patient received in sign-out from other provider at the end of their shift. I have performed an independent history and physical and have no significant additional findings. Orders Ordered: Discontinued Medications Ketorolac Tromethamine (Toradol) 30 mg IV NOW ONE Stop: 01/29/20 06:34 Last Admin: 01/29/20 07:15 Dose: Not Given Documented by: RADHA Ketorolac Tromethamine (Toradol) 30 mg IM NOW ONE Stop: 01/29/20 06:55 Last Admin: 01/29/20 06:59 Dose: 30 mg Documented by: ORIANA Reevaluation(s) Reevaluation #1: patient complained that pain was radiating up to calf at time of discharge conversation. I did recommend an ultrasound, but patient refused. She understands that we could miss the diagnosis of DVT and states she will return if symptoms don't improve. Vital Signs Vital signs: Vital Signs - 8 hr 01/29/20 06:24 01/29/20 06:28 01/29/20 06:30 Temperature 98.5 F Pulse Rate 92 H 106 H Respiratory Rate 25 H Blood Pressure 116/86 116/86 Pulse Oximetry 96 97 97 01/29/20 08:55 Temperature Pulse Rate 81 Respiratory Rate Blood Pressure 109/63 Pulse Oximetry 98 Medical Decision Making <Demetrio Sandoval DO - Last Filed: 01/29/20 18:07> Lab Data Result diagrams: 01/29/20 07:15 01/29/20 07:15 Labs: Lab Results 01/29/20 01/29/20 Range/Units 07:15 07:15 WBC 11.1 H (4.5-11.0) X10^3/uL RBC 3.61 L (4.0-5.2) X10^6/uL Hgb 11.6 L (12.0-16.0) g/dL Hct 35.6 L (36-46) % MCV 98.5 (80-100) fL MCH 32.2 (26-34) PG MCHC 32.7 (30-36) % RDW 12.5 (11.6-14.8) % Plt Count 183 (150-400) X10^3/uL Neut % (Auto) 60.1 (50-75) % Lymph % (Auto) 24.1 L (25-40) % Bates % (Auto) 11.2 (3-14) % Eos % (Auto) 3.8 (2-4) % Baso % (Auto) 0.8 (0-2) % Neut # (Auto) 6700 (5945-1152) /uL Lymph # (Auto) 2700 (6098-2692) /uL Bates # (Auto) 1200 H (0-900) /uL Eos # (Auto) 400 (0-450) /uL Baso # (Auto) 100 (0-100) /uL Sodium 138 (137-145) mmol/L Potassium 5.2 H (3.4-5.1) mmol/L Chloride 106 (98-107) mmol/L Carbon Dioxide 28 (22-32) mmol/L BUN 20 H (7-17) mg/dL Creatinine 0.72 (0.52-1.04) mg/dL Estimated GFR > 60.0 (>60) mL/min BUN/Creatinine Ratio 27.8 H (6-22) Glucose 77 (70-100) mg/dL Calcium 9.6 (8.4-10.2) mg/dL MDM Narrative Medical decision making narrative: Care turned over to Dr. Menjivar at change of shift. <Alfredo Menjivar, DO - Last Filed: 01/29/20 11:37> Lab Data Labs: Lab Results 01/29/20 01/29/20 Range/Units 07:15 07:15 WBC 11.1 H (4.5-11.0) X10^3/uL RBC 3.61 L (4.0-5.2) X10^6/uL Hgb 11.6 L (12.0-16.0) g/dL Hct 35.6 L (36-46) % MCV 98.5 (80-100) fL MCH 32.2 (26-34) PG MCHC 32.7 (30-36) % RDW 12.5 (11.6-14.8) % Plt Count 183 (150-400) X10^3/uL Neut % (Auto) 60.1 (50-75) % Lymph % (Auto) 24.1 L (25-40) % Bates % (Auto) 11.2 (3-14) % Eos % (Auto) 3.8 (2-4) % Baso % (Auto) 0.8 (0-2) % Neut # (Auto) 6700 (5903-8797) /uL Lymph # (Auto) 2700 (2765-5999) /uL Bates # (Auto) 1200 H (0-900) /uL Eos # (Auto) 400 (0-450) /uL Baso # (Auto) 100 (0-100) /uL Sodium 138 (137-145) mmol/L Potassium 5.2 H (3.4-5.1) mmol/L Chloride 106 (98-107) mmol/L Carbon Dioxide 28 (22-32) mmol/L BUN 20 H (7-17) mg/dL Creatinine 0.72 (0.52-1.04) mg/dL Estimated GFR > 60.0 (>60) mL/min BUN/Creatinine Ratio 27.8 H (6-22) Glucose 77 (70-100) mg/dL Calcium 9.6 (8.4-10.2) mg/dL Discharge Plan Departure Patient Disposition: Home Clinical Impression: Acute foot pain Qualifiers: Laterality: left Qualified Code(s): M79.672 - Pain in left foot Discharge Date/Time: 01/29/20 09:33 Instructions: DI for Foot Pain Activity Restrictions/Additional Instructions: *You have been diagnosed with [acute foot pain, considered clot, infection versus other but thought unlikely given exam and labs] *What to do: *Take medications as directed *Follow up with your primary care provider in 2-3 days, call for an appointment. Let them know you were seen in the Emergency Department and that we ask that you be seen in follow up *Return to ER if you should have any new, worsening or concerning symptoms Prescriptions: New ketorolac 10 mg tablet 10 mg PO Q6H PRN (Reason: pain) Qty: 14 RF: 0 No Action acetaminophen [Tylenol Extra Strength] 500 MG tablet 1,000 mg PO Q6HP PRNQty: 0 RF: 0 pramipexole [Mirapex] 0.25 MG tablet 0.25 mg PO HS Qty: 0 RF: 0 cyclobenzaprine 10 MG tablet 10 mg PO Q8HP PRNQty: 20 RF: 0 epinephrine [EpiPen 2-Pacheco] 0.3 mg/0.3 mL auto-injector 0.3 mg IM Q10M PRN (Reason: anaphylaxis) Qty: 2 RF: 0 hydrocodone-acetaminophen 5-325 mg tablet 1 tab PO Q4-6H PRN (Reason: pain) Qty: 10 RF: 0 cyclobenzaprine 5 mg tablet 10 mg PO BEDTIME PRN (Reason: muscle spasm) Qty: 10 RF: 0
[2020-01-29 06:24] VITALS: O2SAT 96
[2020-01-29 06:28] VITALS: BP 116/86; PULSE 92; O2SAT 97
[2020-01-29 06:30] VITALS: BP 116/86; PULSE 106; RESP 25; TEMP 36.9; O2SAT 97; BMI 24.7
[2020-01-29] MEDS: KETOROLAC 60 MG/2 ML VIAL 30 MG IM (06:59)
[2020-01-29 07:31] LABS: Add Manual Diff / Slide Review NO; Basophils Absolute Auto 100 /uL (0-100); Basophils Percent Auto 0.8 % (0-2); Eosinophils Absolute Auto 400 /uL (0-450); Eosinophils Percent Auto 3.8 % (2-4); Hematocrit 35.6 % (36-46); Hemoglobin 11.6 g/dL (12.0-16.0); Lymphocytes Absolute Auto 2700 /uL (1100-4500); Lymphocytes Percent Auto 24.1 % (25-40); Mean Corpuscular HGB Conc 32.7 % (30-36); Mean Corpuscular Hemoglobin 32.2 PG (26-34); Mean Corpuscular Volume 98.5 fL (80-100); Monocytes Absolute Auto 1200 /uL (0-900); Monocytes Percent Auto 11.2 % (3-14); Neutrophils Absolute Auto 6700 /uL (1500-7000); Neutrophils Percent Auto 60.1 % (50-75); Platelet Count 183 X10^3/uL (150-400); Red Blood Cell Count 3.61 X10^6/uL (4.0-5.2); Red Cell Distribution Width 12.5 % (11.6-14.8); White Blood Cell Count 11.1 X10^3/uL (4.5-11.0)
[2020-01-29 07:37] LABS: BUN Creatinine Ratio 27.8 (6-22); Blood Urea Nitrogen 20 mg/dL (7-17); Calcium 9.6 mg/dL (8.4-10.2); Carbon Dioxide 28 mmol/L (22-32); Chloride 106 mmol/L (98-107); Estimated Glomerular Filt Rate > 60.0 mL/min (>60); Glucose 77 mg/dL (70-100); HEMOLYSIS 33 (0-50); Potassium 5.2 mmol/L (3.4-5.1); Sodium 138 mmol/L (137-145)
--- NOTE | 2020-01-29 08:26 | PC.NURSE ---
Previous shift RN unable to obtain IV after 3 attempts.
[2020-01-29 08:55] VITALS: BP 109/63; PULSE 81; O2SAT 98
== END 2020-01-29 09:33 | disposition home or self-care (01) ==
PROVIDERS: Emergency Medicine; Emergency Provider Emergency Medicine
DX: M79.672 Pain in left foot (principal); M79.671 Pain in right foot
CPT/HCPCS: 36415; 80048; 85025; 96372; 99283; 99284; J1885

== ENCOUNTER 2020-02-17 06:28 | Emergency (ER) | payer OTHER, SELFPAY ==
[2020-02-17 06:40] VITALS: BP 120/57; PULSE 97; RESP 16; TEMP 36.5; O2SAT 98; BMI 24.0
--- NOTE | 2020-02-17 06:46 | ED.BACK ---
HPI - Back Pain/Injury General Chief Complaint: Back Pain/Injury Stated Complaint: BMID/LOWER BACK PAIN INJURY TODAY AT [facility] Time Seen by Provider: 02/17/20 06:36 Source: patient Limitations: no limitations History of Present Illness HPI Narrative: 39-year-old woman with fibromyalgia presents with acute back pain. 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 It happened approximately 3:00 a.m. this morning and by 630 is having increasing spasm at approximately the T10 and L1 level bilaterally paraspinous muscles. Related Data Home Medications Medication Instructions Recorded Confirmed acetaminophen [Tylenol Extra 1,000 mg PO Q6HP PRN #0 04/21/17 Strength] pramipexole [Mirapex] 0.25 mg PO HS #0 04/21/17 Previous Rx's Medication Instructions Recorded cyclobenzaprine 10 mg PO Q8HP PRN #20 tab 04/21/17 epinephrine [EpiPen 2-Pacheco] 0.3 mg IM Q10M PRN #2 each 11/25/17 hydrocodone-acetaminophen 1 tab PO Q4-6H PRN #10 tab 01/28/18 cyclobenzaprine 10 mg PO BEDTIME PRN #10 tab 01/19/20 ketorolac 10 mg PO Q6H PRN #14 tab 01/29/20 Allergies Allergy/AdvReac Type Severity Reaction Status Date / Time Sulfa (Sulfonamide Allergy Mild HIVES Verified 01/19/20 13:31 Antibiotics) latex [LATEX] Allergy Unknown Verified 01/19/20 13:31 Review of Systems Review of Systems Narrative: Pertinent positive and negative findings as per HPI Remainder of review of systems is otherwise unremarkable for Constitutional: Fevers, chills, weakness ENT: No sore throat, neck pain, ear pain CV: Chest pain, palpitations, dyspnea on exertion Respiratory: Cough, wheeze, dyspnea GI: Nausea, vomiting, diarrhea, change in bowel habits, black or bloody stools : Dysuria, hematuria, flank pain MS: Muscle weakness, numbness, joint swelling or warmth Neuro: Syncope, dizziness, tingling Patient History Medical History Fibromyalgia (Acute) Methamphetamine use disorder, moderate, in sustained remission, dependence (Acute) Surgical History H/O: hysterectomy (Acute) Hx of appendectomy (Acute) Social History Smoking Status: Current every day smoker Smoking Status: Current every day smoker alcohol intake frequency: other Substance Use Type: former substance user Exam Narrative Exam Narrative: General: Alert appropriate in no acute distress Respiratory: Able to speak in full sentences, no obvious respiratory distress Skin: No obvious rashes, warm and dry Neurologic: Grossly intact no obvious asymmetries or abnormalities, no gait abnormalities Spine: Palpable paraspinous spasm from T10-L2 bilaterally. No rashes or skin changes. Psych, appropriate insight and affect, cooperative Initial Vital Signs Initial Vital Signs: Vital Signs Temperature 97.7 F 02/17/20 06:40 Pulse Rate 97 H 02/17/20 06:40 Respiratory Rate 16 02/17/20 06:40 Blood Pressure 120/57 L 02/17/20 06:40 Pulse Oximetry 98 02/17/20 06:40 Course Orders Ordered: Discontinued Medications Ketorolac Tromethamine (Toradol) 30 mg IM NOW ONE Stop: 02/17/20 06:47 Vital Signs Vital signs: Vital Signs - 8 hr 02/17/20 06:40 Temperature 97.7 F Pulse Rate 97 H Respiratory Rate 16 Blood Pressure 120/57 L Pulse Oximetry 98 [facility] - Back Pain/Injury Medical Records Attestation: I reviewed the patient's medical records. Medical records narrative: HELDER report reviewed. [facility] Narrative Medical decision making narrative: Rather classic presentation for midback strain with paraspinous spasm and no significant neurologic involvement. Patient is currently on methadone and hydrocodone for her fibromyalgia prescribed by the same prescriber. She is given an IM shot of Toradol here in the emergency department and is safe for discharge home. Had initially considered muscle relaxers however contraindicated in light of the doses of chronic narcotics that she currently is taking. Discharge Plan Departure Patient Disposition: Home Clinical Impression: Acute back pain Qualifiers: Back pain location: low back pain Back pain laterality: bilateral Sciatica presence: without sciatica Qualified Code(s): M54.5 - Low back pain Instructions: DI for Back Strain or Sprain Activity Restrictions/Additional Instructions: Thank you for coming in today I am so sorry that you hurt yourself with patient care today. You have very off the is muscle spasm in the midportion of your back. This is acute strain and is not seeming to affect her nerves at all today. Unfortunately, acute strains are typically worse in the 1st 2 days after the injury. I would expect that your going to continue to hurt significantly for the next 2 days before you start to fully heal. You are given a shot of Toradol in the emergency department. Hopefully that is enough to help you sleep so that you begin to heal the muscle strain. Using 400 mg of ibuprofen (2 [id number] pills) and 1 Tylenol every 6 hours can be very helpful in controlling pain. Alternating ice and heat can also be helpful I have suggested light duty and filled out appropriate paperwork for the next 2 days for you. I wish you the best Prescriptions: No Action acetaminophen [Tylenol Extra Strength] 500 MG tablet 1,000 mg PO Q6HP PRNQty: 0 RF: 0 pramipexole [Mirapex] 0.25 MG tablet 0.25 mg PO HS Qty: 0 RF: 0 cyclobenzaprine 10 MG tablet 10 mg PO Q8HP PRNQty: 20 RF: 0 epinephrine [EpiPen 2-Pacheco] 0.3 mg/0.3 mL auto-injector 0.3 mg IM Q10M PRN (Reason: anaphylaxis) Qty: 2 RF: 0 hydrocodone-acetaminophen 5-325 mg tablet 1 tab PO Q4-6H PRN (Reason: pain) Qty: 10 RF: 0 ketorolac 10 mg tablet 10 mg PO Q6H PRN (Reason: pain) Qty: 14 RF: 0 cyclobenzaprine 5 mg tablet 10 mg PO BEDTIME PRN (Reason: muscle spasm) Qty: 10 RF: 0
[2020-02-17] MEDS: KETOROLAC 60 MG/2 ML VIAL 30 MG IM (06:58)
[2020-02-17 07:06] VITALS: BP 120/56; PULSE 91; RESP 16; O2SAT 98
== END 2020-02-17 07:10 | disposition home or self-care (01) ==
PROVIDERS: Emergency Provider Emergency Medicine; Referring Provider Emergency Medicine
DX: S39.012A Strain of muscle, fascia and tendon of lower back, initial encounter (principal); X50.9XXA Other and unspecified overexertion or strenuous movements or postures, initial encounter; Y99.0 Civilian activity done for income or pay
CPT/HCPCS: 96372; 99283; J1885

== ENCOUNTER → 2020-07-25 18:49 | Outpatient (CLI) | payer OTHER, SELFPAY ==
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
== END ==
PROVIDERS: Referring Provider Physician Assistant; Visit Provider Physician Assistant
DX: S99.922A Unspecified injury of left foot, initial encounter (principal); V89.2XXA Person injured in unspecified motor-vehicle accident, traffic, initial encounter
CPT/HCPCS: 73630

== ENCOUNTER 2020-07-28 15:02 | Emergency (ER) | payer OTHER, SELFPAY ==
[2020-07-28 15:08] VITALS: BP 112/55; PULSE 91; RESP 17; TEMP 36.7; O2SAT 97; BMI 23.3
[2020-07-28 15:39] LABS: Add Manual Diff / Slide Review NO; Basophils Absolute Auto 100 /uL (0-100); Basophils Percent Auto 0.6 % (0-2); Eosinophils Absolute Auto 200 /uL (0-450); Eosinophils Percent Auto 2.6 % (2-4); Hematocrit 37.6 % (36-46); Hemoglobin 12.5 g/dL (12.0-16.0); Lymphocytes Absolute Auto 2500 /uL (1100-4500); Lymphocytes Percent Auto 27.2 % (25-40); Mean Corpuscular HGB Conc 33.3 % (30-36); Mean Corpuscular Hemoglobin 32.8 PG (26-34); Mean Corpuscular Volume 98.5 fL (80-100); Monocytes Absolute Auto 1300 /uL (0-900); Monocytes Percent Auto 13.6 % (3-14); Neutrophils Absolute Auto 5200 /uL (1500-7000); Platelet Count 213 X10^3/uL (150-400); Red Blood Cell Count 3.81 X10^6/uL (4.0-5.2); Red Cell Distribution Width 12.6 % (11.6-14.8); White Blood Cell Count 9.3 X10^3/uL (4.5-11.0)
[2020-07-28 15:49] LABS: Alanine Aminotransferase 11 IU/L (<35); Albumin 4.1 g/dL (3.5-5.0); Albumin Globulin Ratio 1.5 (1.0-2.8); Alkaline Phosphatase 55 U/L (38-126); Aspartate Aminotransferase 24 IU/L (14-36); BUN Creatinine Ratio 21.1 (6-22); Bilirubin Total 0.2 mg/dL (0.2-1.3); Blood Urea Nitrogen 16 mg/dL (7-17); Calcium 9.7 mg/dL (8.4-10.2); Carbon Dioxide 25 mmol/L (22-32); Chloride 109 mmol/L (98-107); Estimated Glomerular Filt Rate > 60.0 mL/min (>60); Globulin 2.8 g/dL (1.7-4.1); Glucose 90 mg/dL (70-100); HEMOLYSIS < 15 (0-50); Potassium 5.2 mmol/L (3.4-5.1); Sodium 137 mmol/L (137-145); Total Protein 6.9 g/dL (6.3-8.2)
[2020-07-28 16:08] LABS: Prothrombin Time 11.1 SECONDS (10.1-12.7)
[2020-07-28 16:10] LABS: PTT Partial Thromboplastin Tim 30 SECONDS (26.4-36.2)
== END 2020-07-28 18:04 | disposition left against medical advice (07) ==
PROVIDERS: Emergency Provider Emergency Medicine
DX: R10.9 Unspecified abdominal pain (principal)
CPT/HCPCS: 36415; 80053; 85025; 85610; 85730; 99281